=== PATIENT | female | born 1960 | race Caucasian/White ===

== ENCOUNTER 2018-04-22 13:42 | Inpatient (IN) | payer MEDICARE ==
[~2018-04-22] VITALS: Ht 157.5 cm; Wt 95.8 kg
--- OUTSIDE RECORDS SUMMARY | 2018-04-22 13:44 | XMS REPORT ---
Author Author [facility] Address Unknown Phone Unavailable Care Team Providers Care Lusterer Name Role Phone FEDERICO CHAMBERLAINTomasDORTOHY BOWEN Unavailable Unavailable Problems This patient has no known problems. Allergies, Adverse Reactions, Alerts This patient has no known allergies or adverse reactions. Medications This patient has no known medications. Results Test Description Test Time Test Comments Text Results Atomic Results Result Comments TISSUE EXAM 2018-04-18 17:56:00 Surgical Pathology Report Case: [id number] Authorizing Provider: Manoj Muñoz MD Collected: 04/16/2018 1506 Ord ering Location: [facility] PERIOPERATIVE Received: 04/17/2018 0852 SERVICES Pathologist: Kenneth Shaw MD Specimen: Gallbladder GALLBLADDER, CHOLECYSTECTOMY: - ACUTE AND CHRONIC CHOLECYSTITIS WITH CHOLELITHIASIS Signing Pathologist Direct Phone Line: [phone] signed by Kenneth Shaw MD on 04/18/2018 at 5:56 [id number] Gallbladder The specimen is received in formalin-filled container and labeled with the patient's information and labeled "gallbladder" consists of an intact gallbladder measuring 8 x 4.9 cm with the gallbladder wall thickness up to 0.4 cm. Gallbladder lumen is filled with red thick bile and multiple black smooth stones measuring up to 0.4 cm. The mucosa is neil-red and velvety with no distinct a bnormalities. Section code: A1, margin en face; A2, gallbladder wall. CG/pl Performed BASIC METABOLIC PANEL 2018-04-17 05:36:00 SODIUM (BEAKER) (test zxya=605) 132 meq/L 136-145 POTASSIUM (BEAKER) (test xyug=423) 4.6 meq/L 3.5-5.1 CHLORIDE (BEAKER) (test lgfs=727) 94 meq/L 98-107 CO2 (BEAKER) (test tsbw=275) 30 meq/L 22-29 BLOOD UREA NITROGEN (BEAKER) (test cebs=311) 15 mg/dL 7-21 CREATININE (BEAKER) (test eqqa=518) 0.94 mg/dL 0.57-1.25 GLUCOSE RANDOM (BEAKER) (test tads=475) 69 mg/dL 70-105 CALCIUM (BEAKER) (test zsgw=087) 9.1 mg/dL 8.4-10.2 EGFR (BEAKER) (test tpub=1722) 61 mL/min/1.73 sq m ESTIMATED GFR IS NOT ACCURATE CREATININE CLEARANCE IN PREDICTING GLOMERULAR FILTRATION RATE. ESTIMATED GFR IS NOT APPLICABLE FOR DIALYSIS PATIENTS. HEMOGLOBIN AND [id number] 05:28:00* Test Item Value Reference Range Comments HEMOGLOBIN (BEAKER) (test eyts=233) 12.5 GM/DL 11.2-15.7 HEMATOCRIT (BEAKER) (test qtyk=079) 37.7 % 34.1-44.9 BASIC METABOLIC [id number] 06:30:00* Test Item Value Reference Range Comments SODIUM (BEAKER) (test oarz=255) 131 meq/L 136-145 POTASSIUM (BEAKER) (test gwuo=196) 3.7 meq/L 3.5-5.1 CHLORIDE (BEAKER) (test tngc=381) 93 meq/L 98-107 CO2 (BEAKER) (test iuop=610) 30 meq/L 22-29 BLOOD UREA NITROGEN (BEAKER) (test xgne=607) 12 mg/dL 7-21 CREATININE (BEAKER) (test bjgg=615) 0.78 mg/dL 0.57-1.25 GLUCOSE RANDOM (BEAKER) (test lhbt=515) 62 mg/dL 70-105 CALCIUM (BEAKER) (test libl=403) 9.3 mg/dL 8.4-10.2 EGFR (BEAKER) (test vzdu=7937) 76 mL/min/1.73 sq m ESTIMATED GFR IS NOT ACCURATE CREATININE CLEARANCE IN PREDICTING GLOMERULAR FILTRATION RATE. ESTIMATED GFR IS NOT APPLICABLE FOR DIALYSIS PATIENTS. RAD, ABDOMEN/KUB, 1 VIEW [id number] 20:41:00Reason for exam:->Abdominal pain FINAL REPORT Abdomen one view supine 04/15/2018 8:41 PM CL INICAL INDICATION: Abdominal pain COMPARISON: None available IMPRESSION: There i s no radiographic evidence of bowel obstruction. There is mild ileus. No abnorma l calcifications are seen in the region of the gallbladder or kidneys. There are no acute-appearing skeletal abnormalities.. Signed: Dieudonne Sood rified Date/Time: 04/15/2018 20:41:57 Reading Location: [facility] Radiology Reading Room C METABOLIC [id number] 03:30:00* Test Item Value Reference Range Comments SODIUM (BEAKER) (test bnpw=750) 133 meq/L 136-145 POTASSIUM (BEAKER) (test sirt=562) 3.3 meq/L 3.5-5.1 Specimen slightly hemolyzed CHLORIDE (BEAKER) (test jicq=995) 94 meq/L 98-107 CO2 (BEAKER) (test vxre=442) 29 meq/L 22-29 BLOOD UREA NITROGEN (BEAKER) (test ujwd=604) 10 mg/dL 7-21 CREATININE (BEAKER) (test epnm=960) 0.81 mg/dL 0.57-1.25 Specimen slightly hemolyzed GLUCOSE RANDOM (BEAKER) (test gnan=837) 81 mg/dL 70-105 CALCIUM (BEAKER) (test rpti=726) 9.4 mg/dL 8.4-10.2 EGFR (BEAKER) (test xzfh=3240) 73 mL/min/1.73 sq m ESTIMATED GFR IS NOT ACCURATE CREATININE CLEARANCE IN PREDICTING GLOMERULAR FILTRATION RATE. ESTIMATED GFR IS NOT APPLICABLE FOR DIALYSIS PATIENTS. CBC (HEMOGRAM ONLY)2018-04-15 03:19:00* Test Item Value Reference Range Comments WHITE BLOOD CELL COUNT (BEAKER) (test jmjn=349) 9.3 K/ L 3.5-10.5 RED BLOOD CELL COUNT (BEAKER) (test bced=525) 4.10 M/ L 3.93-5.22 HEMOGLOBIN (BEAKER) (test whyj=781) 12.6 GM/DL 11.2-15.7 HEMATOCRIT (BEAKER) (test uixv=621) 36.9 % 34.1-44.9 MEAN CORPUSCULAR VOLUME (BEAKER) (test ncgb=600) 90.0 fL 79.4-94.8 MEAN CORPUSCULAR HEMOGLOBIN (BEAKER) (test ppxo=748) 30.7 pg 25.6-32.2 MEAN CORPUSCULAR HEMOGLOBIN CONC (BEAKER) (test gbgk=388) 34.1 GM/DL 32.2-35.5 RED CELL DISTRIBUTION WIDTH (BEAKER) (test dnmm=775) 12.9 % 11.7-14.4 PLATELET COUNT (BEAKER) (test eymc=056) 230 K/CU MM 150-450 MEAN PLATELET VOLUME (BEAKER) (test uhlr=415) 10.1 fL 9.4-12.3 NUCLEATED RED BLOOD CELLS (BEAKER) (test duya=918) 0 /100 WBC 0-0 BASIC METABOLIC [id number] 07:48:00* Test Item Value Reference Range Comments SODIUM (BEAKER) (test gwxh=131) 130 meq/L 136-145 POTASSIUM (BEAKER) (test bmlz=708) 4.1 meq/L 3.5-5.1 CHLORIDE (BEAKER) (test ybev=563) 95 meq/L 98-107 CO2 (BEAKER) (test ktqb=079) 30 meq/L 22-29 BLOOD UREA NITROGEN (BEAKER) (test epth=772) 14 mg/dL 7-21 CREATININE (BEAKER) (test fzhc=150) 0.81 mg/dL 0.57-1.25 GLUCOSE RANDOM (BEAKER) (test ytuo=110) 79 mg/dL 70-105 CALCIUM (BEAKER) (test nlrd=969) 9.2 mg/dL 8.4-10.2 EGFR (BEAKER) (test bcwh=6347) 73 mL/min/1.73 sq m ESTIMATED GFR IS NOT ACCURATE CREATININE CLEARANCE IN PREDICTING GLOMERULAR FILTRATION RATE. ESTIMATED GFR IS NOT APPLICABLE FOR DIALYSIS PATIENTS. CBC (HEMOGRAM ONLY)2018-04-14 07:04:00* Test Item Value Reference Range Comments WHITE BLOOD CELL COUNT (BEAKER) (test ezmv=503) 9.5 K/ L 3.5-10.5 RED BLOOD CELL COUNT (BEAKER) (test lnyf=968) 3.98 M/ L 3.93-5.22 HEMOGLOBIN (BEAKER) (test ybma=899) 12.3 GM/DL 11.2-15.7 HEMATOCRIT (BEAKER) (test axua=604) 36.3 % 34.1-44.9 MEAN CORPUSCULAR VOLUME (BEAKER) (test brme=224) 91.2 fL 79.4-94.8 MEAN CORPUSCULAR HEMOGLOBIN (BEAKER) (test ernt=402) 30.9 pg 25.6-32.2 MEAN CORPUSCULAR HEMOGLOBIN CONC (BEAKER) (test vrvt=515) 33.9 GM/DL 32.2-35.5 RED CELL DISTRIBUTION WIDTH (BEAKER) (test xnyw=609) 13.1 % 11.7-14.4 PLATELET COUNT (BEAKER) (test qprj=805) 222 K/CU MM 150-450 MEAN PLATELET VOLUME (BEAKER) (test wsey=164) 10.6 fL 9.4-12.3 NUCLEATED RED BLOOD CELLS (BEAKER) (test ckqf=371) 0 /100 WBC 0-0 FL, [id number] 09:45:00Reason for exam:->CBD stoneFINAL REPORT ERCP 5 views 04/13/2018 9:44 AM CLINICAL HISTORY: Instrument localization COMPARISON: None available IMPRESSION: Please correlate imaging report findings with the procedure note prepared by Dr. Abraham, as an intra- procedure imaging consultation was not requested. Reported fluoroscopy time: 72.8 seconds. Signed: Dieudonne Sood Verified Date/Time: 04/13/2018 09:45:14 Reading Location: [address] Neuro Reading Room REHENSIVE METABOLIC [id number] 07:32:00* Test Item Value Reference Range Comments TOTAL PROTEIN (BEAKER) (test sayl=568) 6.5 gm/dL 6.0-8.3 ALBUMIN (BEAKER) (test flnx=5115) 2.7 g/dL 3.5-5.0 ALKALINE PHOSPHATASE (BEAKER) (test jekh=528) 101 U/L 40-150 BILIRUBIN TOTAL (BEAKER) (test ilmt=356) 2.0 mg/dL 0.2-1.2 SODIUM (BEAKER) (test jezz=095) 131 meq/L 136-145 POTASSIUM (BEAKER) (test sgoj=297) 3.7 meq/L 3.5-5.1 CHLORIDE (BEAKER) (test drgl=080) 98 meq/L 98-107 CO2 (BEAKER) (test enrc=401) 25 meq/L 22-29 BLOOD UREA NITROGEN (BEAKER) (test aaiq=422) 19 mg/dL 7-21 CREATININE (BEAKER) (test xiqh=930) 0.84 mg/dL 0.57-1.25 GLUCOSE RANDOM (BEAKER) (test twef=876) 65 mg/dL 70-105 CALCIUM (BEAKER) (test ykbr=029) 9.1 mg/dL 8.4-10.2 AST (SGOT) (BEAKER) (test uhhu=873) 43 U/L 5-34 ALT (SGPT) (BEAKER) (test hvkp=584) 23 U/L 6-55 EGFR (BEAKER) (test qeej=9066) 70 mL/min/1.73 sq m ESTIMATED GFR IS NOT ACCURATE CREATININE CLEARANCE IN PREDICTING GLOMERULAR FILTRATION RATE. ESTIMATED GFR IS NOT APPLICABLE FOR DIALYSIS PATIENTS. CBC (HEMOGRAM ONLY)2018-04-13 06:01:00* Test Item Value Reference Range Comments WHITE BLOOD CELL COUNT (BEAKER) (test zofh=119) 11.2 K/ L 3.5-10.5 RED BLOOD CELL COUNT (BEAKER) (test mlpm=367) 3.89 M/ L 3.93-5.22 HEMOGLOBIN (BEAKER) (test wbgz=210) 12.1 GM/DL 11.2-15.7 HEMATOCRIT (BEAKER) (test xfoh=025) 36.1 % 34.1-44.9 MEAN CORPUSCULAR VOLUME (BEAKER) (test oaau=258) 92.8 fL 79.4-94.8 MEAN CORPUSCULAR HEMOGLOBIN (BEAKER) (test ahzm=004) 31.1 pg 25.6-32.2 MEAN CORPUSCULAR HEMOGLOBIN CONC (BEAKER) (test qnzn=542) 33.5 GM/DL 32.2-35.5 RED CELL DISTRIBUTION WIDTH (BEAKER) (test putm=677) 13.1 % 11.7-14.4 PLATELET COUNT (BEAKER) (test tzwp=100) 207 K/CU MM 150-450 MEAN PLATELET VOLUME (BEAKER) (test ycwj=301) 11.3 fL 9.4-12.3 NUCLEATED RED BLOOD CELLS (BEAKER) (test gxos=349) 0 /100 WBC 0-0 U/S, ABDOMINAL, [id number] 15:41:00Reason for exam:->ABDOMINAL PAIN Reason for exam:->EMESISFINAL REPORT INDICATION: Ascites. Limited abdominal ultrasound. IMPRESSION: Ultrasound examination of the abdomen was performed in preparation for paracentesis. However, only trace ascites is seen in the abdomen and pelvis, not amenable for safe drainage. Paracentesis is therefore not performed. Signed: Little Griffin Verified Date/Time: 04/12/2018 15:41:37 Reading Location: [address] Ortho Consult Reading Room , CHEST, 1 VIEW, NON [id number] 01:19:00Reason for exam:->sobReason for exam:- >EMESISShould this be performed at the bedside?->YesFINAL REPORT INDICATION: sobEMESIS COMPARISON: None TECHNIQUE: Single frontal view of the chest. FINDINGS: Lungs and pleura: Poor inspiratory effort versus low lung volumes. No focal airspace consolidation. No effusion.Heart and mediastinum: Normal heart size. Unremarkable mediastinal contours.Osseous structures: No acute abnormality.Other: None. IMPRESSION: No acute intrat horacic abnormality. Signed: Bridgette Hardy Verified Date/Time: 04/12 01:19:41 Reading Location: [place] [id number] Neuro Reading Room B-TYPE NATRIURETIC FACTOR (BNP)2018-04-12 01:15:00* Test Item Value Reference Range Comments B-TYPE NATRIURETIC PEPTIDE (BEAKER) (test epwd=728) 101 pg/mL 0-100 POCT-LACTIC ACID, [id number] 00:44:00* Test Item Value Reference Range Comments POC-LACTIC ACID, VENOUS (BEAKER) (test fojb=8798) 1.4 mmol/L 0.9-1.7 TESTED AT [facility] [address] [facility] [address] PROTHROMBIN [id number] 23:30:00* Test Item Value Reference Range Comments PROTIME (BEAKER) (test vqec=137) 19.1 seconds 11.7-14.7 INR (EMILY) (test rfdl=646) 1.6 <=5.9 RECOMMENDED COUMADIN/WARFARIN INR THERAPY RANGESSTANDARD DOSE: 2.0 - 3.0 Inclu mesha: PROPHYLAXIS for venous thrombosis, systemic embolization; TREATMENT for kristal ous thrombosis and/or pulmonary embolus.HIGH RISK: Target INR is 2.5-3.5 for pat ients with mechanical heart valves.U/S, ABDOMINAL, [id number] 21:37:00 Abdomen limited area? Add comment if clarification is needed.->Gall BladderReason for exam:->RUQ and epigastric painFINAL REPORT Right upper quadrant abdominal ultrasound, 04/11/2018. History: Right upper quadrant and epigastric pain. Comparison: None. Discussion: Transverse and longitudinal images of the right upper quadrant of the abdomen were obtained demonstrating a liver of coarsened echotexture with a nodular contour. There is no evidence of a focal hepatic mass. The portal vein is patent with hepatopetal flow and is within normal limits measuring 7 mm in diameter. The biliary tree is within normal limits with the common bile duct measuring 6 mm in diameter. The gallbladder is distended measuring 6.5 cm transverse diameter. There is gallbladder wall thickening up to 6 mm. Echogenic material within the gallbladder fossa is likely sludge. No shadowing stones are visualized. The registered quality checker reports the sonographic Clark's sign is positive The right kidney is normal in size and echogenicity without evidence of hydr onephrosis, stones, or mass and measures 10.6 cm in length. The pancreas is secu red by bowel gas. The abdominal aorta is within normal limits. There is ascites. IMPRESSION: 1. Distended gallbladder with echogenic sludge and gallbladder wall thickening concerning for acute cholecystitis. No shadowing gallstones are vis ualized. Cirrhosis is a confounding factor which could account for the gallbladd er wall thickening. If there is high clinical concern for acute acalculous fabby cystitis HIDA scan may be performed.2. Cirrhosis with signs of portal hypertensi on including ascites Signed: Shyam Mccabe MDReport Verified Date/Time: 04/11 21:37:49 Reading Location: [facility] [id number] Consult Reading Room [facility] signed by: SHYAM MCCABE on 04/11/2018 09:37 PM [id number] 17:21:00* Test Item Value Reference Range Comments AMYLASE (BEAKER) (test bgru=696) 45 U/L 25-125 Specimen slightly ictericHEPATIC FUNCTION [id number] 17:21:00* Test Item Value Reference Range Comments TOTAL PROTEIN (BEAKER) (test vwfr=812) 7.1 gm/dL 6.0-8.3 ALBUMIN (BEAKER) (test tumo=1972) 3.0 g/dL 3.5-5.0 BILIRUBIN TOTAL (BEAKER) (test fkdw=166) 2.6 mg/dL 0.2-1.2 BILIRUBIN DIRECT (BEAKER) (test lips=383) 1.2 mg/dL 0.1-0.5 ALKALINE PHOSPHATASE (BEAKER) (test cpvj=030) 113 U/L 40-150 AST (SGOT) (BEAKER) (test rjhs=923) 46 U/L 5-34 ALT (SGPT) (BEAKER) (test ypee=708) 29 U/L 6-55 Specimen slightly [id number] 17:21:00* Test Item Value Reference Range Comments LIPASE (BEAKER) (test ifoe=808) 10 U/L 8-78 Specimen slightly ictericBASIC METABOLIC [id number] 17:21:00* Test Item Value Reference Range Comments SODIUM (BEAKER) (test poxe=253) 135 meq/L 136-145 POTASSIUM (BEAKER) (test nlsg=919) 3.7 meq/L 3.5-5.1 CHLORIDE (BEAKER) (test hznu=886) 99 meq/L 98-107 CO2 (BEAKER) (test ynic=396) 24 meq/L 22-29 BLOOD UREA NITROGEN (BEAKER) (test jcyl=207) 15 mg/dL 7-21 CREATININE (BEAKER) (test wxxy=078) 1.08 mg/dL 0.57-1.25 GLUCOSE RANDOM (BEAKER) (test sdfi=803) 83 mg/dL 70-105 CALCIUM (BEAKER) (test nmpu=300) 9.6 mg/dL 8.4-10.2 EGFR (BEAKER) (test umjx=1006) mL/min/1.73 sq m INSUFFICIENT CLINICAL DATA TO CALCULATE ESTIMATED GFR. Specimen slightly ictericCBC W/PLT COUNT & AUTO [id number] 17:10:00 * Test Item Value Reference Range Comments WHITE BLOOD CELL COUNT (BEAKER) (test fcoi=924) 17.5 K/ L 3.5-10.5 RED BLOOD CELL COUNT (BEAKER) (test tybm=333) 4.29 M/ L 3.93-5.22 HEMOGLOBIN (BEAKER) (test jeps=395) 13.2 GM/DL 11.2-15.7 HEMATOCRIT (BEAKER) (test sgvv=695) 39.8 % 34.1-44.9 MEAN CORPUSCULAR VOLUME (BEAKER) (test pumo=217) 92.8 fL 79.4-94.8 MEAN CORPUSCULAR HEMOGLOBIN (BEAKER) (test woav=077) 30.8 pg 25.6-32.2 MEAN CORPUSCULAR HEMOGLOBIN CONC (BEAKER) (test xgti=289) 33.2 GM/DL 32.2-35.5 RED CELL DISTRIBUTION WIDTH (BEAKER) (test adur=870) 12.9 % 11.7-14.4 PLATELET COUNT (BEAKER) (test lwhv=901) 210 K/CU MM 150-450 MEAN PLATELET VOLUME (BEAKER) (test ahdp=054) 11.1 fL 9.4-12.3 NUCLEATED RED BLOOD CELLS (BEAKER) (test rlrg=905) 0 /100 WBC 0-0 NEUTROPHILS RELATIVE PERCENT (BEAKER) (test irrr=234) 77 % LYMPHOCYTES RELATIVE PERCENT (BEAKER) (test cztn=707) 14 % MONOCYTES RELATIVE PERCENT (BEAKER) (test zjzm=823) 8 % EOSINOPHILS RELATIVE PERCENT (BEAKER) (test vani=386) 0 % BASOPHILS RELATIVE PERCENT (BEAKER) (test qygm=757) 0 % NEUTROPHILS ABSOLUTE COUNT (BEAKER) (test bphj=233) 13.50 K/ L 1.56-6.13 LYMPHOCYTES ABSOLUTE COUNT (BEAKER) (test rory=218) 2.49 K/ L 1.18-3.74 MONOCYTES ABSOLUTE COUNT (BEAKER) (test kojw=416) 1.42 K/ L 0.24-0.36 EOSINOPHILS ABSOLUTE COUNT (BEAKER) (test ukfs=542) 0.00 K/ L 0.04-0.36 BASOPHILS ABSOLUTE COUNT (BEAKER) (test ptvh=079) 0.03 K/ L 0.01-0.08 IMMATURE GRANULOCYTES-RELATIVE PERCENT (OffiSyncAKER) (test gpai=1966) 1 % 0-1
--- OUTSIDE RECORDS SUMMARY | 2018-04-22 13:44 | XMS REPORT | Clinical Summary ---
Author Author [facility] Address Unknown Phone Unavailable Care Team Providers Care Boiler Fireman Name Role Phone Flor Rey MD PCP Allergies No Known Allergies Medications End Date Status Medication Sig Dispensed Refills Start Date Active atorvastatin (LIPITOR) 40 Take 40 mg by 0 MG tablet mouth daily. Active clopidogrel (PLAVIX) 75 Take 75 mg by 0 mg tablet mouth daily. Active folic acid (FOLVITE) 1 MG Take 1 mg by 0 tablet mouth daily. Active gabapentin (NEURONTIN) Take 300 mg 0 300 MG capsule by mouth 2 (two) times daily. Active metoprolol (LOPRESSOR) Take 100 mg 0 100 MG tablet by mouth 2 (two) times daily. Active mometasone 110 mcg (30 Inhale 220 0 doses) AePB mcg by mouth via inhaler daily. 04/17/2019 Active spironolactone Take 1 tablet 90 tablet 3 (ALDACTONE) 50 MG tablet (50 mg total) 9 by mouth daily. 04/17/2019 Active thiamine 100 MG tablet Take 1 tablet 0 (100 mg 9 total) by mouth daily. 04/27/2018 Active traMADol (ULTRAM) 50 mg Take 1 tablet 30 tablet 0 tablet (50 mg total) 9 by mouth every 6 (six) hours as needed for Pain for up to 10 days. Max Daily Amount: 200 mg 04/17/2018 Discontinued cimetidine (TAGAMET) 200 Take 200 mg 0 MG tablet by mouth 4 (four) times daily. 04/17/2018 Discontinued DULoxetine (CYMBALTA) 20 Take 20 mg by 0 MG capsule mouth daily. 04/17/2018 Discontinued enalapril (VASOTEC) 10 MG Take 10 mg by 0 tablet mouth daily. 04/17/2018 Discontinued HYDROcodone-acetaminophen Take 1 tablet 30 tablet 0 (NORCO 5-325) 5-325 mg by mouth 9 per tablet every 6 (six) hours as needed for Pain for up to 10 days. Max Daily Amount: 4 tablets Active Problems Problem Noted Date Acute diastolic heart failure 04/16/2018 Hyponatremia 04/13/2018 Alcoholic cirrhosis of liver with ascites 04/12/2018 Portal hypertension 04/12/2018 SOB (shortness of breath) 04/12/2018 Acute cholecystitis 04/11/2018 Resolved Problems Problem Noted Date Resolved Date SIRS (systemic inflammatory response syndrome) 04/12/2018 04/12/2018 Encounters Care Team Description Date Type Specialty Cindy Mathews MD 04/16/2018 Anesthesia Event Manoj Muñoz MD LAPAROSCOPY,CHOLECYSTECTOMY 04/16/2018 Surgery Connie Edmonds, ALAN 04/13/2018 Anesthesia Gastroenterology Event Aditya Abraham MD ERCP 04/13/2018 Surgery Gastroenterology Arun Rae MD Dang, Thai Duc, MD Acute cholecystitis (Primary Dx); Cirrhosis of liver without ascites, unspecified hepatic cirrhosis type (HCC); RUQ abdominal pain; Non-intractable vomiting with nausea, unspecified vomiting type; Sepsis, due to unspecified organism (HCC) 04/11/2018 Hospital General Internal Medicine - Encounter 04/17/2018 04/11/2018 Orders Only General Internal Medicine 04/11/2018 Travel after 04/21/2017 Social History Date Tobacco Use Types Packs/Day Years Used Former Smoker Smokeless Tobacco: Former User Alcohol Use Drinks/Week oz/Week Comments No Alcohol Habits Answer Date Recorded How often do you have a drink containing alcohol? Never 04/11/2018 How many drinks containing alcohol do you have on Not asked a typical day when you are drinking? How often do you have six or more drinks on one Not asked occasion? Sex Assigned at Date Recorded Not on file Industry Job Start Date Occupation Not on file Not on file Not on file Travel End Travel History Travel Start No recent travel history available. Last Filed Vital Signs Time Taken Vital Sign Reading 04/17/2018 8:00 AM AIR POLLUTION SPECIALIST Blood Pressure 104/57 04/17/2018 8:00 AM AIR POLLUTION SPECIALIST Pulse 75 04/17/2018 8:00 AM AIR POLLUTION SPECIALIST Temperature 36.1 C (97 F) 04/17/2018 8:00 AM AIR POLLUTION SPECIALIST Respiratory Rate 18 04/17/2018 8:00 AM AIR POLLUTION SPECIALIST Oxygen Saturation 93% - Inhaled Oxygen - Concentration 04/11/2018 3:58 PM AIR POLLUTION SPECIALIST Weight 86.6 kg (191 lb) 04/11/2018 3:58 PM AIR POLLUTION SPECIALIST Height 157.5 cm (5' 2") 04/11/2018 3:58 PM AIR POLLUTION SPECIALIST Body Mass Index 34.93 Plan of Treatment Not on file Procedures Comments Procedure Name Priority Date/Time Associated Diagnosis TRANSFUSION SERVICE 04/17/2018 REPORT - SCAN 6:00 PM AIR POLLUTION SPECIALIST HEMOGLOBIN AND HEMATOCRIT Routine 04/17/2018 3:22 AM AIR POLLUTION SPECIALIST BASIC METABOLIC PANEL (7) Routine 04/17/2018 3:22 AM AIR POLLUTION SPECIALIST TISSUE EXAM AP Routine 04/16/2018 3:06 PM AIR POLLUTION SPECIALIST TYPE AND SCREEN, Routine 04/16/2018 AUTOMATED 2:55 PM AIR POLLUTION SPECIALIST LAPAROSCOPY,CHOLECYSTECTO 04/16/2018 Cholecystitis MY 1:50 PM AIR POLLUTION SPECIALIST Special Needs REQ TF BASIC METABOLIC PANEL (7) Routine 04/16/2018 4:55 AM AIR POLLUTION SPECIALIST XR ABDOMEN 1 VIEW Routine 04/15/2018 6:00 PM AIR POLLUTION SPECIALIST ECHOCARDIOGRAM REPORT - 04/15/2018 SCAN 4:20 PM AIR POLLUTION SPECIALIST 2D ECHO W/ DOPPLER Routine 04/15/2018 (CW/PW/COLOR) 1:24 PM AIR POLLUTION SPECIALIST CBC (HEMOGRAM ONLY) Routine 04/15/2018 3:07 AM AIR POLLUTION SPECIALIST BASIC METABOLIC PANEL (7) Routine 04/15/2018 3:07 AM AIR POLLUTION SPECIALIST BASIC METABOLIC PANEL (7) Routine 04/14/2018 6:01 AM AIR POLLUTION SPECIALIST CBC (HEMOGRAM ONLY) Routine 04/14/2018 6:01 AM AIR POLLUTION SPECIALIST FL ERCP Routine 04/13/2018 8:35 AM AIR POLLUTION SPECIALIST REPORT OF PROCEDURE - 04/13/2018 ENDOSCOPY URL 8:34 AM AIR POLLUTION SPECIALIST ERCP,BALLOON SWEEPING 04/13/2018 Common bile duct (CBD) 8:00 AM AIR POLLUTION SPECIALIST obstruction PROCEDURE W/ C-ARM 04/13/2018 Common bile duct (CBD) 8:00 AM AIR POLLUTION SPECIALIST obstruction ERCP 04/13/2018 Common bile duct (CBD) 8:00 AM AIR POLLUTION SPECIALIST obstruction CBC (HEMOGRAM ONLY) Routine 04/13/2018 4:00 AM AIR POLLUTION SPECIALIST COMPREHENSIVE METABOLIC Routine 04/13/2018 PANEL 4:00 AM AIR POLLUTION SPECIALIST US ABDOMEN LIMITED STAT 04/12/2018 3:40 PM AIR POLLUTION SPECIALIST XR CHEST 1 VIEW STAT 04/12/2018 PORTABLE/BEDSIDE 12:53 AM AIR POLLUTION SPECIALIST POCT-LACTIC ACID, VENOUS Routine 04/12/2018 12:40 AM AIR POLLUTION SPECIALIST B-TYPE NATRIURETIC FACTOR Routine 04/12/2018 (BNP) 12:37 AM AIR POLLUTION SPECIALIST PROTHROMBIN TIME/INR STAT 04/11/2018 10:55 PM AIR POLLUTION SPECIALIST US ABDOMEN LIMITED STAT 04/11/2018 8:37 PM AIR POLLUTION SPECIALIST ED ECG INTERPRETATION Routine 04/11/2018 6:08 PM AIR POLLUTION SPECIALIST CBC W/PLT COUNT & AUTO STAT 04/11/2018 DIFFERENTIAL 4:47 PM AIR POLLUTION SPECIALIST CBC W/PLT COUNT & AUTO STAT 04/11/2018 DIFFERENTIAL 4:47 PM AIR POLLUTION SPECIALIST LIPASE STAT 04/11/2018 4:47 PM AIR POLLUTION SPECIALIST AMYLASE STAT 04/11/2018 4:47 PM AIR POLLUTION SPECIALIST HEPATIC FUNCTION PANEL STAT 04/11/2018 4:47 PM AIR POLLUTION SPECIALIST BASIC METABOLIC PANEL (7) STAT 04/11/2018 4:47 PM AIR POLLUTION SPECIALIST ECG 12-LEAD Routine 04/11/2018 4:24 PM AIR POLLUTION SPECIALIST Procedure Note - Interface, External Ris In - 04/11/2018 6:21 PM AIR POLLUTION SPECIALIST Ventricula r Rate 80 BPM Atrial Rate 80 BPM P-R Interval 160 ms QRS Duration 80 ms Q-T Interval 438 ms QTC Calculatio n(Bazett) 505 ms P [place] 68 degrees R [place] 51 degrees T [place] 70 degrees Normal sinus rhythm Nonspecifi c T wave abnormalit y Prolonged QT Abnormal ECG No previous ECGs available ECG 12-LEAD STAT 04/11/2018 4:24 PM AIR POLLUTION SPECIALIST after 04/21/2017 Results * TRANSFUSION SERVICE REPORT - SCAN (04/17/2018 6:00 PM AIR POLLUTION SPECIALIST) Narrative Performed At * Hemoglobin and hematocrit (04/17/2018 3:22 AM AIR POLLUTION SPECIALIST) Hemoglobin 12.5 11.2 - 15.7 GM/DL [facility] Hematocrit 37.7 34.1 - 44.9 % [facility] Specimen Blood - Arm, Left Performing Organization Address [facility] Phone Number [facility] [address] [place] [address] [phone] [place] [address] * Basic Metabolic Panel (04/17/2018 3:22 AM AIR POLLUTION SPECIALIST) Only the most recent of 5 results within the time period is included. Sodium 132 (L) 136 - 145 meq/L [facility] Potassium 4.6 3.5 - 5.1 meq/L [facility] Chloride 94 (L) 98 - 107 meq/L [facility] CO2 30 (H) 22 - 29 meq/L [facility] BUN 15 7 - 21 mg/dL [facility] Creatinine 0.94 0.57 - 1.25 mg/dL [facility] Glucose 69 (L) 70 - 105 mg/dL [facility] Calcium 9.1 8.4 - 10.2 mg/dL [facility] EGFR 61Comment: ESTIMATED GFR IS mL/min/1.73 sq m [facility] NOT ACCURATE CREATININE [facility] CLEARANCE IN PREDICTING GLOMERULAR FILTRATION RATE. ESTIMATED GFR IS NOT APPLICABLE FOR DIALYSIS PATIENTS. Specimen Blood - Arm, Left Performing Organization Address City/[facility] Phone Number [place] [phone] [place], [place] [id number] [facility] * Tissue Exam (04/16/2018 3:06 PM AIR POLLUTION SPECIALIST) Case Report Surgical Pathology [facility] Report [facility] Case: [id number] Authorizing Provider:Manoj Muñoz MD Collected: 04/16/2018 1506 Ordering Location: [facility] PERIOPERATIVE Received: 04/17/2018 0852 SERVICES Pathologist: Kenneth Shaw MD Specimen:Gallbladder DIAGNOSIS GALLBLADDER, CHOLECYSTECTOMY: [facility] - ACUTE AND CHRONIC [facility] CHOLECYSTITIS WITH CHOLELITHIASIS Signing Pathologist Direct Phone Line: [phone] CPT Code(s) 15789 [facility] CLINICAL HISTORY Cholecystitis [facility] SPECIMEN SOURCE Gallbladder [facility] GROSS DESCRIPTION The specimen is received in [facility] formalin-filled container and [facility] labeled with the patient's information and labeled "gallbladder" consists of an intact gallbladder measuring 8 x 4.9 cm with the gallbladder wall thickness up to 0.4 cm. Gallbladder lumen is filled with red thick bile and multiple black smooth stones measuring up to 0.4 cm. The mucosa is neil-red and velvety with no distinct abnormalities. Section code: A1, margin en face; A2, gallbladder wall. CG/pl MICROSCOPIC DESCRIPTION Performed [facility] Specimen Tissue - Gallbladder Performing Organization Address City/[facility] Cent[facility] Phone Number [address] [address] [phone] [place] [address] * Type and screen, automated (04/16/2018 2:55 PM AIR POLLUTION SPECIALIST) ABO/RH AUTOMATED (BEAKER) O POSITIVE [facility] Ab Scrn NEGATIVE [facility] Specimen Blood Performing Organization Address City/[facility]/Zipcode Phone Number [address] [address] [facility] * XR abdomen / KUB 1 view (04/15/2018 6:00 PM AIR POLLUTION SPECIALIST) Narrative Performed At FINAL REPORT [facility] Abdomen one view supine 04/15/2018 8:41 PM CLINICAL INDICATION: Abdominal pain COMPARISON: None available IMPRESSION: There is no radiographic evidence of bowel obstruction. There is mild ileus. No abnormal calcifications are seen in the region of the gallbladder or kidneys. There are no acute-appearing skeletal abnormalities.. Signed: Dieudonne Olivarez MD Report Verified Date/Time:04/15/2018 20:41:57 Reading Location: [facility] Radiology Reading Room Procedure Note Interface, External Ris In - 04/15/2018 8:44 PM AIR POLLUTION SPECIALIST FINAL REPORT Abdomen one view supine 04/15/2018 8:41 PM CLINICAL INDICATION: Abdominal pain COMPARISON: None available IMPRESSION: There is no radiographic evidence of bowel obstruction. There is mild ileus. No abnormal calcifications are seen in the region of the gallbladder or kidneys. There are no acute-appearing skeletal abnormalities.. Signed: Dieudonne Olivarez MD Report Verified Date/Time: 04/15/2018 20:41:57 Reading Location: [facility] Radiology Reading Room Performing Organization Address City/State/Zipcode Phone Number [facility] * ECHOCARDIOGRAM REPORT - SCAN (04/15/2018 4:20 PM AIR POLLUTION SPECIALIST) Narrative Performed At * 2D Echo W/Doppler(CW/PW/Color) (04/15/2018 1:24 PM AIR POLLUTION SPECIALIST) Ejection Fraction [facility] ECHO HEARTLAB [facility] Narrative Performed At Transthoracic Echocardiography Report (TTE) [facility] ECHO HEARTLAB Demographics [facility] Patient NameADRIANA ALLAN Date of Study04/15/2018 ADDI Gender Female Visit [id number] Race Unknown [id number] Number Date of 1960 Referring PhysicianDang Ike Carter Age 57 year(s) 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 Clinical History Liver cirrhosis, Former smoker, Murmur, Hep C, HLD, HTN HGB 12.6 HCT 36.9 % Contrast Medium: Bubble Study. Amount - 20 ml Height: 62 inches Weight: 86.64 kg (191 lbs) BSA: 1.87 m^2 BMI: 34.93 kg/m^2 HR: 77 bpm BP: 126/69 mmHg Summary Normal left ventricular chamber size. Normal wall thickness. Normal overall left ventricular systolic function. No apparent segmental wall motion abnormalities. Estimated LVEF by qualitative assessment is normal (>60%) . Grade 1 diastolic dysfunction (impaired relaxation and low-normal LA pressure). Moderate aortic stenosis. Signature Findings Technical Quality: Good visualization Left Ventricle Normal left ventricular chamber size. Normal wall thickness. Normal overall left ventricular systolic function. No apparent segmental wall motion abnormalities. Estimated LVEF by qualitative assessment is normal (>60%) . Grade 1 diastolic dysfunction (impaired relaxation and low-normal LA pressure). Left AtriumLA size is moderately enlarged . Right VentricleNormal right ventricle structure and function. Right Atrium Normal right atrium. Atrial SeptumIV saline contrast injection was negative for a PFO (patent foramen ovale) at rest and post Valsalva . Aortic Valve Moderate AoV cusp thickening. Moderate AoV cusp calcification. Moderate aortic stenosis. Mitral Valve Mild MV leaflet thickening. Mild mitral annular calcification. Tricuspid ValveA trace of tricuspid regurgitation. Estimated peak systolic PA pressure is 30-35 mmHg . Pulmonic Valve Normal PV structure and function by limited views and Doppler. AortaAortic root size (SInus of Valsalva diameter) is normal . PericardiumNo evidence of pericardial effusion. IVC/SVC/PA/PV/PleuralThe estimated RA pressure by IVC dynamics 0-5mmHg . Chambers/Structures Left Atrium LA Dimension: 3.75 cmLA Area: 24.32 cm^2 LA Volume: 80.33 ml LA Vol. Index: 43 ml/m^2 Left Ventricle LVIDd: 4.5 cm LV Septum Diastolic: 1.08 cm LV PW Diastolic: 0.97 cm LVOT Diameter: 2.05 cm Aorta Ao Root S of Mague.: 3.3 cm Doppler/Quantitative Measurements Aortic Valve Peak Velocity: 3.54 m/sMean Velocity: 2.61 m/s Peak Gradient: 50.17 mmHgMean Gradient: 29.77 mmHg AV Area (continuity): 1.08 cm^2 AV VTI: 81.26 cm AV DVI: 0.33 LVOT Peak Velocity: 1.22 m/s Peak Gradient: 5.95 mmHg Mean Velocity: 0.77 m/s Mean Gradient: 2.85 mmHg LVOT Diameter: 2.05 cmLVOT VTI: 26.56 cm LVOT Area: 3.3 cm^2 LVOT SV:87.62 ml LVOT CO: 6.75 l/min LVOT CI: 3.61 l/min/m^2 Procedure Note Interface, External Ris In - 04/15/2018 3:40 PM AIR POLLUTION SPECIALIST Transthoracic Echocardiography Report (TTE) Demographics Patient Name ADRIANA ALLAN Date of Study 04/15/2018 ADDI Gender Female Visit Number [id number] Race Unknown Room Number 1530 Number Date of 1960 Referring Physician Cece Carter Age 57 year(s) 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 Clinical History Liver cirrhosis, Former smoker, Murmur, Hep C, HLD, HTN HGB 12.6 HCT 36.9 % Contrast Medium: Bubble Study. Amount - 20 ml Height: 62 inches Weight: 86.64 kg (191 lbs) BSA: 1.87 m^2 BMI: 34.93 kg/m^2 HR: 77 bpm BP: 126/69 mmHg Summary Normal left ventricular chamber size. Normal wall thickness. Normal overall left ventricular systolic function. No apparent segmental wall motion abnormalities. Estimated LVEF by qualitative assessment is normal (>60%) . Grade 1 diastolic dysfunction (impaired relaxation and low-normal LA pressure). Moderate aortic stenosis. Signature Findings Technical Quality: Good visualization Left Ventricle Normal left ventricular chamber size. Normal wall thickness. Normal overall left ventricular systolic function. No apparent segmental wall motion abnormalities. Estimated LVEF by qualitative assessment is normal (>60%) . Grade 1 diastolic dysfunction (impaired relaxation and low-normal LA pressure). Left Atrium LA size is moderately enlarged . Right Ventricle Normal right ventricle structure and function. Right Atrium Normal right atrium. Atrial Septum IV saline contrast injection was negative for a PFO (patent foramen ovale) at rest and post Valsalva . Aortic Valve Moderate AoV cusp thickening. Moderate AoV cusp calcification. Moderate aortic stenosis. Mitral Valve Mild MV leaflet thickening. Mild mitral annular calcification. Tricuspid Valve A trace of tricuspid regurgitation. Estimated peak systolic PA pressure is 30-35 mmHg . Pulmonic Valve Normal PV structure and function by limited views and Doppler. Aorta Aortic root size (SInus of Valsalva diameter) is normal . Pericardium No evidence of pericardial effusion. IVC/SVC/PA/PV/Pleural The estimated RA pressure by IVC dynamics 0-5mmHg . Chambers/Structures Left Atrium LA Dimension: 3.75 cm LA Area: 24.32 cm^2 LA Volume: 80.33 ml LA Vol. Index: 43 ml/m^2 Left Ventricle LVIDd: 4.5 cm LV Septum Diastolic: 1.08 cm LV PW Diastolic: 0.97 cm LVOT Diameter: 2.05 cm Aorta Ao Root S of Mague.: 3.3 cm Doppler/Quantitative Measurements Aortic Valve Peak Velocity: 3.54 m/s Mean Velocity: 2.61 m/s Peak Gradient: 50.17 mmHg Mean Gradient: 29.77 mmHg AV Area (continuity): 1.08 cm^2 AV VTI: 81.26 cm AV DVI: 0.33 LVOT Peak Velocity: 1.22 m/s Peak Gradient: 5.95 mmHg Mean Velocity: 0.77 m/s Mean Gradient: 2.85 mmHg LVOT Diameter: 2.05 cm LVOT VTI: 26.56 cm LVOT Area: 3.3 cm^2 LVOT SV:87.62 ml LVOT CO: 6.75 l/min LVOT CI: 3.61 l/min/m^2 Performing Organization Address City/State/Zipcode Phone Number [facility] * CBC (Hemogram only) (04/15/2018 3:07 AM AIR POLLUTION SPECIALIST) Only the most recent of 3 results within the time period is included. WBC 9.3 3.5 - 10.5 K/L [facility] RBC 4.10 3.93 - 5.22 M/L [facility] Hemoglobin 12.6 11.2 - 15.7 GM/DL [facility] Hematocrit 36.9 34.1 - 44.9 % [facility] MCV 90.0 79.4 - 94.8 fL [facility] MCH 30.7 25.6 - 32.2 pg [facility] MCHC 34.1 32.2 - 35.5 GM/DL [facility] RDW 12.9 11.7 - 14.4 % [facility] Platelets 230 150 - 450 K/CU MM [facility] MPV 10.1 9.4 - 12.3 fL [facility] nRBC 0 0 - 0 /100 WBC [facility] Specimen Blood - Arm, Left Performing Organization Address City/[facility]/Zipcode Phone Number [facility] [address] [place] [address] MEDICAL CENTER * FL ERCP (04/13/2018 8:35 AM AIR POLLUTION SPECIALIST) Narrative Performed At FINAL REPORT GE RIS ERCP 5 views 04/13/2018 9:44 AM CLINICAL HISTORY: Instrument localization COMPARISON: None available IMPRESSION: Please correlate imaging report findings with the procedure note prepared by Dr. Abraham, as an intra-procedure imaging consultation was not requested. Reported fluoroscopy time: 72.8 seconds. Signed: Dieudonne Olivarez MD Report Verified Date/Time:04/13/2018 09:45:14 Reading Location: [address] Neuro Reading Room Procedure Note Interface, External Ris In - 04/13/2018 9:47 AM AIR POLLUTION SPECIALIST FINAL REPORT ERCP 5 views 04/13/2018 9:44 AM CLINICAL HISTORY: Instrument localization COMPARISON: None available IMPRESSION: Please correlate imaging report findings with the procedure note prepared by Dr. Abraham, as an intra-procedure imaging consultation was not requested. Reported fluoroscopy time: 72.8 seconds. Signed: Dieudonne Olivarez MD Report Verified Date/Time: 04/13/2018 09:45:14 Reading Location: [address] Neuro Reading Room Performing Organization Address [facility]/Zipcode Phone Number [facility] * REPORT OF PROCEDURE - ENDOSCOPY URL (04/13/2018 8:34 AM AIR POLLUTION SPECIALIST) Narrative Performed At * Comprehensive metabolic panel (04/13/2018 4:00 AM AIR POLLUTION SPECIALIST) Protein, Total 6.5 6.0 - 8.3 gm/dL [facility] Albumin 2.7 (L) 3.5 - 5.0 g/dL [facility] Alkaline Phosphatase 101 40 - 150 U/L [facility] Total Bilirubin 2.0 (H) 0.2 - 1.2 mg/dL [facility] Sodium 131 (L) 136 - 145 meq/L [facility] Potassium 3.7 3.5 - 5.1 meq/L [facility] Chloride 98 98 - 107 meq/L [facility] CO2 25 22 - 29 meq/L [facility] BUN 19 7 - 21 mg/dL [facility] Creatinine 0.84 0.57 - 1.25 mg/dL [facility] Glucose 65 (L) 70 - 105 mg/dL [facility] Calcium 9.1 8.4 - 10.2 mg/dL [facility] AST 43 (H) 5 - 34 U/L [facility] ALT 23 6 - 55 U/L [facility] EGFR 70Comment: ESTIMATED GFR IS mL/min/1.73 sq m [facility] NOT ACCURATE CREATININE [facility] CLEARANCE IN PREDICTING GLOMERULAR FILTRATION RATE. ESTIMATED GFR IS NOT APPLICABLE FOR DIALYSIS PATIENTS. Specimen Blood Performing Organization Address City/State/Zipcode Phone Number [facility] [address] [place] [address] [facility] * US abdomen limited (04/12/2018 3:40 PM AIR POLLUTION SPECIALIST) Only the most recent of 2 results within the time period is included. Narrative Performed At FINAL REPORT [employer] INDICATION: Ascites. Limited abdominal ultrasound. IMPRESSION: Ultrasound examination of the abdomen was performed in preparation for paracentesis. However, only trace ascites is seen in the abdomen and pelvis, not amenable for safe drainage. Paracentesis is therefore not performed. Signed: Rolly Griffin MD Report Verified Date/Time:04/12/2018 15:41:37 Reading Location: [facility] [id number] Ortho Consult Reading Room Procedure Note Interface, External Ris In - 04/12/2018 3:43 PM AIR POLLUTION SPECIALIST FINAL REPORT INDICATION: Ascites. Limited abdominal ultrasound. IMPRESSION: Ultrasound examination of the abdomen was performed in preparation for paracentesis. However, only trace ascites is seen in the abdomen and pelvis, not amenable for safe drainage. Paracentesis is therefore not performed. Signed: Rolly Griffin MD Report Verified Date/Time: 04/12/2018 15:41:37 Reading Location: [place] [id number] Ortho Consult Reading Room Performing Organization Address [facility] Phone Number GE RIS * XR chest 1 view portable / bedside (04/12/2018 12:53 AM AIR POLLUTION SPECIALIST) Narrative Performed At FINAL REPORT [employer] INDICATION: sob EMESIS COMPARISON: None TECHNIQUE: Single frontal view of the chest. FINDINGS: Lungs and pleura: Poor inspiratory effort versus low lung volumes. No focal airspace consolidation. No effusion. Heart and mediastinum: Normal heart size. Unremarkable mediastinal contours. Osseous structures: No acute abnormality. Other: None. IMPRESSION: No acute intrathoracic abnormality. Signed: Seema Valles MD Report Verified Date/Time:04/12/2018 01:19:41 Reading Location: [facility] C013 Neuro Reading Room Procedure Note Interface, External Ris In - 04/12/2018 1:21 AM AIR POLLUTION SPECIALIST FINAL REPORT INDICATION: sob EMESIS COMPARISON: None TECHNIQUE: Single frontal view of the chest. FINDINGS: Lungs and pleura: Poor inspiratory effort versus low lung volumes. No focal airspace consolidation. No effusion. Heart and mediastinum: Normal heart size. Unremarkable mediastinal contours. Osseous structures: No acute abnormality. Other: None. IMPRESSION: No acute intrathoracic abnormality. Signed: Seema Valles MD Report Verified Date/Time: 04/12/2018 01:19:41 Reading Location: [facility] C013V Neuro Reading Room Performing Organization Address [facility] Cent[facility]ode Phone Number GE RIS * POC-Lactic Acid, Venous (04/12/2018 12:40 AM AIR POLLUTION SPECIALIST) POC-Lactic Acid, Venous 1.4Comment: TESTED AT [facility] 0.9 - 1.7 mmol/L [address] Specimen Blood Performing Organization Address City/State/Zipcode Phone Number [address] [address] [facility] * B-type Natriuretic Factor (BNP) (04/12/2018 12:37 AM AIR POLLUTION SPECIALIST) BNP 101 (H) 0 - 100 pg/mL [facility] Specimen Blood Performing Organization Address City/[facility] [place] [address] [facility] * Prothrombin time/INR (04/11/2018 10:55 PM AIR POLLUTION SPECIALIST) Protime 19.1 (H) 11.7 - 14.7 seconds [facility] INR 1.6 <=5.9 [facility] Specimen Blood Narrative Performed At RECOMMENDED COUMADIN/WARFARIN INR THERAPY RANGES [facility] STANDARD DOSE: 2.0 - 3.0 Includes: PROPHYLAXIS for venous thrombosis, [facility] systemic embolization; TREATMENT for venous thrombosis and/or pulmonary embolus. HIGH RISK: Target INR is 2.5-3.5 for patients with mechanical heart valves. Performing Organization Address City/[facility] [place] [address] [facility] * ECG/EKG Interpretation (04/11/2018 6:08 PM AIR POLLUTION SPECIALIST) Narrative Performed At Arun Rae MD 04/11/2018 11:51 PM ECG/EKG Interpretation Date/Time: 04/11/2018 4:24 PM Performed by: Arun Rae MD Authorized by: Arun Rae MD The ECG was interpreted by ED physician. This ECG was not compared with previous ECG(s).The ECG is interpreted as sinus rhythm. Rate is normal rate. Heart rate is 80 BPM. Conduction: conduction normal. ST segments normal. T waves normal. Clinical Impression: non-specific ECGECG reviewed and does not meet STEMI criteria. Patient tolerance: Patient tolerated the procedure well with no immediate complications * CBC with platelet count + automated diff (04/11/2018 4:47 PM AIR POLLUTION SPECIALIST) WBC 17.5 (H) 3.5 - 10.5 K/L [facility] RBC 4.29 3.93 - 5.22 M/L [facility] Hemoglobin 13.2 11.2 - 15.7 GM/DL [facility] Hematocrit 39.8 34.1 - 44.9 % [facility] MCV 92.8 79.4 - 94.8 fL [facility] MCH 30.8 25.6 - 32.2 pg [facility] MCHC 33.2 32.2 - 35.5 GM/DL [facility] RDW 12.9 11.7 - 14.4 % [facility] Platelets 210 150 - 450 K/CU MM [facility] MPV 11.1 9.4 - 12.3 fL [facility] nRBC 0 0 - 0 /100 WBC [facility] % Neutros 77 % [facility] % Lymphs 14 % [facility] % Monos 8 % [facility] % Eos 0 % [facility] % Baso 0 % [facility] # Neutros 13.50 (H) 1.56 - 6.13 K/L [facility] # Lymphs 2.49 1.18 - 3.74 K/L [facility] # Monos 1.42 (H) 0.24 - 0.36 K/L [facility] # Eos 0.00 (L) 0.04 - 0.36 K/L [facility] # Baso 0.03 0.01 - 0.08 K/L [facility] Immature 1 0 - 1 % [facility] Granulocytes-Relative [facility] Specimen Blood - Arm, Right Performing Organization Address City/State/Zipcode Phone Number [address] * Lipase (04/11/2018 4:47 PM AIR POLLUTION SPECIALIST) Lipase 10 8 - 78 U/L [facility] Specimen Blood - Arm, Right Narrative Performed At Specimen slightly icteric [facility] Performing Organization Address City/[facility] Centercode Phone Number [address] * Amylase (04/11/2018 4:47 PM AIR POLLUTION SPECIALIST) Amylase 45 25 - 125 U/L [facility] Specimen Blood - Arm, Right Narrative Performed At Specimen slightly icteric [facility] Performing Organization Address City/[facility] Phone Number [address] * Hepatic function panel (04/11/2018 4:47 PM AIR POLLUTION SPECIALIST) Protein, Total 7.1 6.0 - 8.3 gm/dL [facility] Albumin 3.0 (L) 3.5 - 5.0 g/dL [facility] Total Bilirubin 2.6 (H) 0.2 - 1.2 mg/dL [facility] Bilirubin, Direct 1.2 (H) 0.1 - 0.5 mg/dL [facility] Alkaline Phosphatase 113 40 - 150 U/L [facility] AST 46 (H) 5 - 34 U/L [facility] ALT 29 6 - 55 U/L [facility] Specimen Blood - Arm, Right Narrative Performed At Specimen slightly icteric [facility] Performing Organization Address City/State/Zipcode Phone Number [facility] [address] [place] [address] [facility] * ECG 12 lead (04/11/2018 4:24 PM AIR POLLUTION SPECIALIST) Narrative Performed At Ventricular Rate 80 BPM GE MUSE Atrial Rate 80 BPM P-R Interval 160 ms QRS Duration 80 ms Q-T Interval 438 ms QTC Calculation(Bazett) 505 ms P [place] 68 degrees R [place] 51 degrees T [place] 70 degrees Normal sinus rhythm Nonspecific T wave abnormality Prolonged QT Abnormal ECG No previous ECGs available Confirmed by Kwabena JACKSON, KENNETH ([id number]) on 04/12/2018 12:10:50 PM Procedure Note Interface, External Ris In - 04/12/2018 12:11 PM AIR POLLUTION SPECIALIST Ventricular Rate 80 BPM Atrial Rate 80 BPM P-R Interval 160 ms QRS Duration 80 ms Q-T Interval 438 ms QTC Calculation(Bazett) 505 ms P [place] 68 degrees R [place] 51 degrees T [place] 70 degrees Normal sinus rhythm Nonspecific T wave abnormality Prolonged QT Abnormal ECG No previous ECGs available Confirmed by Kwabena JACKSON, KENNETH ([id number]) on 04/12/2018 12:10:50 PM Performing Organization Address City/State/Zipcode Phone Number GE MUSE after 04/21/2017 Insurance Payer Benefit Subscriber ID Type Phone Address Plan / Group [facility] [employer] xxxxxxxxx CARE [employer] Advance Directives For more information, please contact: [address] [address] Date Inactivated Comments Code Status Date Activated Full Code 04/11/2018 10:30 PM This code status was determined by: Patient
[2018-04-22 14:23] LABS: BASOPHILS # (AUTO) 0.1 (0.0-0.1); BASOPHILS % 0.3 % (0.0-1.0); EOSINOPHILS # (AUTO) 0.1 (0.0-0.4); EOSINOPHILS % 0.6 % (0.0-6.0); HEMATOCRIT 38.1 % (34.2-44.1); HEMOGLOBIN 13.6 g/dL (12.0-16.0); LYMPHOCYTES % 8.5 % (18.0-39.1); MEAN CORPUSCULAR HEMOGLOBIN 31.7 pg (28-32); MEAN CORPUSCULAR HGB CONC 35.7 g/dL (31-35); MEAN CORPUSCULAR VOLUME 88.8 fL (81-99); MONOCYTES # (AUTO) 1.9 (0.2-0.8); NEUTROPHILS % 81.1 % (38.7-80.0); PLATELET COUNT 137 x10e3/uL (140-360); RED BLOOD COUNT 4.29 x10e6/uL (3.6-5.1); RED CELL DISTRIBUTION WIDTH 14.6 % (11.7-14.4)
[2018-04-22] MEDS ORDERED: SODIUM CHLORIDE 0.9% 1000ML 1,000 ML IV SCH (14:30)
[2018-04-22 14:35] LABS: INR 1.79; PROTHROMBIN TIME 22.2 seconds (11.9-14.5)
[2018-04-22 14:36] LABS: PARTIAL THROMBOPLASTIN TIME 36.1 seconds (23.8-35.5)
[2018-04-22 14:43] LABS: ALBUMIN 2.2 g/dL (3.5-5.0); ALBUMIN/GLOBULIN RATIO 0.6 (0.8-2.0); ANION GAP 12.9 mmol/L (8-16); CALCIUM 8.4 mg/dL (8.4-10.2); CREATININE, SERUM 1.1 mg/dL (0.57-1.11); MAGNESIUM 1.9 MG/DL (1.3-2.1); POTASSIUM 3.9 mmol/L (3.5-5.1)
[2018-04-22 15:03] LABS: CREATINE KINASE MB 2.1 ng/mL (0-5.0); THYROID STIMULATING HORMONE 2.425 uIU/mL (0.350-4.940)
[2018-04-22] MEDS ORDERED: HYDROMORPHONE 2MG/ML 2 MG/ML ML ONE (16:30)
[2018-04-22] MEDS ORDERED: ONDANSETRON HCL INJ 2MG/ML 2ML 2 MG/ML VIAL ONE (16:30)
[2018-04-22 17:04] LABS: LYMPHOCYTES % (MANUAL) 2 % (19-48); MONOCYTES % (MANUAL) 9 % (3.4-9.0); NEUTROPHILS % (MANUAL) 89 % (40-74); PLATELET ESTIMATE SLIGHTLY DECREASED; PLATELET MORPHOLOGY COMMENT NORMAL; RBC MORPHOLOGY COMMENT NORMAL
[2018-04-22] MEDS ORDERED: PIPER-TAZ 3.375 GM 50 ML IV STA (17:12)
[2018-04-22] MEDS ORDERED: VANCOMYCIN 1GM/NS 250 ML 250 ML IV STA (17:12)
[2018-04-22] MEDS ORDERED: ONDANSETRON HCL INJ 2MG/ML 2ML 2 MG/ML VIAL IV NR (18:15)
[2018-04-22] MEDS ORDERED: HYDROMORPHONE 1MG/1ML INJ IV NR (18:15)
--- NOTE | 2018-04-22 18:25 | Diagnostic Imaging Report ---
EXAM: CT of the abdomen and pelvis WITH contrast HISTORY: Pain, 1 WEEK POST CHOLECYSTECTOMY RLQ ABD PAIN COMPARISON: None available. TECHNIQUE: The abdomen and pelvis were scanned utilizing a multidetector helical scanner. Coronal and sagittal reformats are provided. PROTOCOL: Routine IV CONTRAST: 100 cc of Isovue-370. ORAL CONTRAST: Water RADIATION DOSE: Total DLP: 795.79 mGy*cm Estimated effective dose: (DLP x 0.015 x size factor) Dose modulation, iterative reconstruction, and/or weight based adjustment of the mA/kV was utilized to reduce the radiation dose to as low as reasonably achievable. COMPLICATIONS: None FINDINGS: LOWER THORAX: Unremarkable. HEPATOBILIARY: The liver density is mildly heterogeneous with a nodular contour. Metallic clips in the right upper quadrant of the abdomen are compatible with prior cholecystectomy. SPLEEN: No splenomegaly. The spleen is heterogeneous with multiple geographic areas of hypodensity and lateral linear calcific density. PANCREAS: No focal masses or ductal dilatation. ADRENALS: Bilateral indeterminate adrenal nodules, 1.6 cm on the right and 1.4 cm on the left. KIDNEYS/URETERS: No hydronephrosis or calcified stone. Cortical scarring on the right. PELVIC ORGANS/BLADDER: The urinary bladder is partially decompressed, which limits evaluation. PERITONEUM / RETROPERITONEUM: Small volume low density ascites, predominantly surrounding the liver and the right pelvis a small amount of intermediate density within the dependent portion of the fluid around the liver (for example series 2 image 40). No loculated abscess. LYMPH NODES: No pathologically enlarged lymph node. VESSELS: Likely cavernous transformation of the oral vein. Scattered atherosclerotic vascular calcifications, including the coronary arteries. Irregular mixed calcified and noncalcified thrombus within the proximal abdominal aorta (for example series 2 images 30 and 33). GI TRACT: No distention or wall thickening identified. The appendix is normal. Scattered colonic diverticuli, without CT evidence of acute diverticulitis. BONES: No aggressive osseous lesion or acute fracture. SOFT TISSUES: Diffuse nonspecific soft tissue edema, right greater than left. No loculated drainable fluid collection. IMPRESSION: 1. Status post cholecystectomy. 2. 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 3. Small volume ascites, most likely related to the cirrhosis, but a postsurgical bile leak may be a consideration the appropriate setting. 4. Bilateral indeterminate adrenal nodules. Recommend a follow-up nonemergent CT of the abdomen with and without contrast (adrenal mass protocol) for further characterization. 5. Prominent atherosclerosis, including the coronary arteries. 6. Colonic diverticulosis. 7. 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 Signed by: Dr. Hira Sorensen D.O., M.M.M. on 04/22/2018 6:22 PM
[2018-04-22 18:42] LABS: BILIRUBIN,URINE NEGATIVE (NEGATIVE); CLARITY,URINE CLEAR (CLEAR); COLOR,URINE YELLOW (YELLOW); KETONES,URINE NEGATIVE (NEGATIVE); LEUKOCYTE ESTERASE ,URINE NEGATIVE (NEGATIVE); NITRITE,URINE NEGATIVE (NEGATIVE); PROTEIN,URINE DIPSTICK NEGATIVE (NEGATIVE); URINE UROBILINOGEN 0.2 mg/dL (0.2 - 1)
[2018-04-22 18:48] LABS: AMORPHOUS SEDIMENT,URINE MANY (FEW); BACTERIA,URINE MODERATE /HPF
[2018-04-22] MEDS ORDERED: ATORVASTATIN CA20 MG PO (19:46)
[2018-04-22] MEDS ORDERED: PLAVIX75 MG PO (19:46)
[2018-04-22] MEDS ORDERED: FOLIC ACID1 MG PO (19:46)
[2018-04-22] MEDS ORDERED: thiamine PO (19:46)
[2018-04-22] MEDS ORDERED: SPIRONOLACTONE50 MG PO (19:46)
[2018-04-22] MEDS ORDERED: ULTRAM 50MG50 MG PO (19:46)
[2018-04-22] MEDS ORDERED: DULERA 100 MCG/13 GM INH (19:46)
[2018-04-22] MEDS ORDERED: METOPROLOL TART50 MG PO (19:46)
[2018-04-22] MEDS ORDERED: GABAPENTIN300 MG PO (19:46)
--- OUTSIDE RECORDS SUMMARY | 2018-04-22 19:52 | XMS REPORT | Clinical Summary ---
Author Author KEARA [facility] Address Unknown Phone Unavailable Care Team Providers Care [employer] Member Name Role Phone Flor Rey MD PCP [...] Taken Vital Sign Reading 04/17/2018 8:00 AM HADOOP ANALYST Blood Pressure 104/57 04/17/2018 8:00 AM HADOOP ANALYST Pulse 75 04/17/2018 8:00 AM HADOOP ANALYST Temperature 36.1 C (97 F) 04/17/2018 8:00 AM HADOOP ANALYST Respiratory Rate 18 04/17/2018 8:00 AM HADOOP ANALYST Oxygen Saturation 93% - Inhaled Oxygen - Concentration 04/11/2018 3:58 PM HADOOP ANALYST Weight 86.6 kg (191 lb) 04/11/2018 3:58 PM HADOOP ANALYST Height 157.5 cm (5' 2") 04/11/2018 3:58 PM HADOOP ANALYST Body Mass Index 34.93 Plan of Treatment Not on file Procedures Comments Procedure Name Priority Date/Time Associated Diagnosis TRANSFUSION SERVICE 04/17/2018 REPORT - SCAN 6:00 PM HADOOP ANALYST HEMOGLOBIN AND HEMATOCRIT Routine 04/17/2018 3:22 AM HADOOP ANALYST BASIC METABOLIC PANEL (7) Routine 04/17/2018 3:22 AM HADOOP ANALYST TISSUE EXAM AP Routine 04/16/2018 3:06 PM HADOOP ANALYST TYPE AND SCREEN, Routine 04/16/2018 AUTOMATED 2:55 PM HADOOP ANALYST LAPAROSCOPY,CHOLECYSTECTO 04/16/2018 Cholecystitis MY 1:50 PM HADOOP ANALYST Special Needs REQ TF BASIC METABOLIC PANEL (7) Routine 04/16/2018 4:55 AM HADOOP ANALYST XR ABDOMEN 1 VIEW Routine 04/15/2018 6:00 PM HADOOP ANALYST ECHOCARDIOGRAM REPORT - 04/15/2018 SCAN 4:20 PM HADOOP ANALYST 2D ECHO W/ DOPPLER Routine 04/15/2018 (CW/PW/COLOR) 1:24 PM HADOOP ANALYST CBC (HEMOGRAM ONLY) Routine 04/15/2018 3:07 AM HADOOP ANALYST BASIC METABOLIC PANEL (7) Routine 04/15/2018 3:07 AM HADOOP ANALYST BASIC METABOLIC PANEL (7) Routine 04/14/2018 6:01 AM HADOOP ANALYST CBC (HEMOGRAM ONLY) Routine 04/14/2018 6:01 AM HADOOP ANALYST FL ERCP Routine 04/13/2018 8:35 AM HADOOP ANALYST REPORT OF PROCEDURE - 04/13/2018 ENDOSCOPY URL 8:34 AM HADOOP ANALYST ERCP,BALLOON SWEEPING 04/13/2018 Common bile duct (CBD) 8:00 AM HADOOP ANALYST obstruction PROCEDURE W/ C-ARM 04/13/2018 Common bile duct (CBD) 8:00 AM HADOOP ANALYST obstruction ERCP 04/13/2018 Common bile duct (CBD) 8:00 AM HADOOP ANALYST obstruction CBC (HEMOGRAM ONLY) Routine 04/13/2018 4:00 AM HADOOP ANALYST COMPREHENSIVE METABOLIC Routine 04/13/2018 PANEL 4:00 AM HADOOP ANALYST US ABDOMEN LIMITED STAT 04/12/2018 3:40 PM HADOOP ANALYST XR CHEST 1 VIEW STAT 04/12/2018 PORTABLE/BEDSIDE 12:53 AM HADOOP ANALYST POCT-LACTIC ACID, VENOUS Routine 04/12/2018 12:40 AM HADOOP ANALYST B-TYPE NATRIURETIC FACTOR Routine 04/12/2018 (BNP) 12:37 AM HADOOP ANALYST PROTHROMBIN TIME/INR STAT 04/11/2018 10:55 PM HADOOP ANALYST US ABDOMEN LIMITED STAT 04/11/2018 8:37 PM HADOOP ANALYST ED ECG INTERPRETATION Routine 04/11/2018 6:08 PM HADOOP ANALYST CBC W/PLT COUNT & AUTO STAT 04/11/2018 DIFFERENTIAL 4:47 PM HADOOP ANALYST CBC W/PLT COUNT & AUTO STAT 04/11/2018 DIFFERENTIAL 4:47 PM HADOOP ANALYST LIPASE STAT 04/11/2018 4:47 PM HADOOP ANALYST AMYLASE STAT 04/11/2018 4:47 PM HADOOP ANALYST HEPATIC FUNCTION PANEL STAT 04/11/2018 4:47 PM HADOOP ANALYST BASIC METABOLIC PANEL (7) STAT 04/11/2018 4:47 PM HADOOP ANALYST ECG 12-LEAD Routine 04/11/2018 4:24 PM HADOOP ANALYST Procedure Note - Interface, External Ris In - 04/11/2018 6:21 PM HADOOP ANALYST Ventricula r Rate 80 BPM Atrial Rate 80 BPM P-R Interval 160 ms QRS Duration 80 ms Q-T Interval 438 ms QTC Calculatio n(Bazett) 505 ms P [place] 68 degrees R [place] 51 degrees T [place] 70 degrees Normal sinus rhythm Nonspecifi c T wave abnormalit y Prolonged QT Abnormal ECG No previous ECGs available ECG 12-LEAD STAT 04/11/2018 4:24 PM HADOOP ANALYST after 04/21/2017 Results * TRANSFUSION SERVICE REPORT - SCAN (04/17/2018 6:00 PM HADOOP ANALYST) Narrative Performed At * Hemoglobin and hematocrit (04/17/2018 3:22 AM HADOOP ANALYST) Hemoglobin 12.5 11.2 - 15.7 GM/DL [facility] Hematocrit 37.7 34.1 - 44.9 % [facility] Specimen Blood - Arm, Left Performing Organization Address [facility] Phone Number [facility] [address] [place] [address] [phone] [place] [address] * Basic Metabolic Panel (04/17/2018 3:22 AM HADOOP ANALYST) Only the most recent of 5 results within the time period is included. Sodium 132 (L) 136 - 145 meq/L [facility] Potassium 4.6 3.5 - 5.1 meq/L [facility] Chloride 94 (L) 98 - 107 meq/L [facility] CO2 30 (H) 22 - 29 meq/L [facility] BUN 15 7 - 21 mg/dL [facility] Creatinine 0.94 0.57 - 1.25 mg/dL [facility] Glucose 69 (L) 70 - 105 mg/dL [facility] Calcium 9.1 8.4 - 10.2 mg/dL [facility] EGFR 61Comment: ESTIMATED GFR IS mL/min/1.73 sq m [facility] NOT ACCURATE CREATININE [facility] CLEARANCE IN PREDICTING GLOMERULAR FILTRATION RATE. ESTIMATED GFR IS NOT APPLICABLE FOR DIALYSIS PATIENTS. Specimen Blood - Arm, Left Performing Organization Address City/[facility] Phone Number [place] [phone] [place], [place] [phone] [facility] * Tissue Exam (04/16/2018 3:06 PM HADOOP ANALYST) Case Report Surgical Pathology [facility] Report [facility] Case: [id number] Authorizing Provider:Manoj Muñoz MD Collected: 04/16/2018 1506 Ordering Location: [facility] PERIOPERATIVE Received: 04/17/2018 0852 SERVICES Pathologist: Kenneth Shaw MD Specimen:Gallbladder DIAGNOSIS GALLBLADDER, CHOLECYSTECTOMY: [facility] - ACUTE AND CHRONIC [facility] CHOLECYSTITIS WITH CHOLELITHIASIS Signing Pathologist Direct Phone Line: [phone] CPT Code(s) [address]175 [facility] CLINICAL HISTORY Cholecystitis [facility] SPECIMEN SOURCE Gallbladder [facility] GROSS DESCRIPTION The specimen is received in [facility] formalin-filled container and [facility] labeled with the patient's information [...] A2, gallbladder wall. CG/pl MICROSCOPIC DESCRIPTION Performed [facility] Specimen Tissue - Gallbladder Performing Organization Address City/[facility] Cent[facility] Phone Number [address] [address] [phone] [place] [address] * Type and screen, automated (04/16/2018 2:55 PM HADOOP ANALYST) ABO/RH AUTOMATED (BEAKER) O POSITIVE [facility] Ab Scrn NEGATIVE [facility] Specimen Blood Performing Organization Address City/[facility]/Zipcode Phone Number [address] [address] [facility] * XR abdomen / KUB 1 view (04/15/2018 6:00 PM HADOOP ANALYST) Narrative Performed At FINAL REPORT [facility] Abdomen one view supine 04/15/2018 8:41 PM CLINICAL INDICATION: Abdominal pain COMPARISON: None available IMPRESSION: There is no radiographic evidence of bowel obstruction. There is mild ileus. No abnormal calcifications are seen in the region of the gallbladder or kidneys. There are no acute-appearing skeletal abnormalities.. Signed: Dieudonne Olivarez MD Report Verified Date/Time:04/15/2018 20:41:57 Reading Location: [facility] Radiology Reading Room Procedure Note Interface, External Ris In - 04/15/2018 8:44 PM HADOOP ANALYST FINAL REPORT Abdomen one view supine 04/15/2018 8:41 PM CLINICAL INDICATION: Abdominal pain COMPARISON: None available IMPRESSION: There is no radiographic evidence of bowel obstruction. There is mild ileus. No abnormal calcifications are seen in the region of the gallbladder or kidneys. There are no acute-appearing skeletal abnormalities.. Signed: Dieudonne Olivarez MD Report Verified Date/Time: 04/15/2018 20:41:57 Reading Location: [facility] Radiology Reading Room Performing Organization Address City/State/Zipcode Phone Number [facility] * ECHOCARDIOGRAM REPORT - SCAN (04/15/2018 4:20 PM HADOOP ANALYST) Narrative Performed At * 2D Echo W/Doppler(CW/PW/Color) (04/15/2018 1:24 PM HADOOP ANALYST) Ejection Fraction [facility] ECHO HEARTLAB [facility] Narrative Performed At Transthoracic Echocardiography Report (TTE) [facility] ECHO HEARTLAB Demographics [facility] Patient NameADRIANA ALLAN Date of Study04/15/2018 ADDI Gender Female Visit [id number] Race Unknown [id number] Number Date of 1960 Referring PhysicianDang Ike Carter Age 57 year(s) 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 Ashley 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 Flaquito Albarran MD Physician Procedure Type of [...] External Ris In - 04/15/2018 3:40 PM HADOOP ANALYST Transthoracic Echocardiography Report (TTE) Demographics Patient Name ADRIANA ALLAN Date of Study 04/15/2018 ADDI Gender Female Visit Number [id number] Race Unknown Room Number 1530 Number Date of 1960 Referring Physician Cece Carter Age 57 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 WBC 9.3 3.5 - 10.5 K/L [facility] RBC 4.10 3.93 - 5.22 M/L [facility] Hemoglobin 12.6 11.2 - 15.7 GM/DL [facility] Hematocrit 36.9 34.1 - 44.9 % [facility] MCV 90.0 79.4 - 94.[address] [facility] MCH 30.7 25.6 - 32.[address] [facility] MCHC 34.1 32.2 - 35.5 GM/DL [facility] RDW 12.9 11.7 - 14.4 % [facility] Platelets 230 150 - 450 K/CU MM [facility] MPV 10.1 9.4 - 12.[address] [facility] nRBC 0 0 - 0 /[address] [facility] Specimen Blood - Arm, Left Performing Organization Address City/[facility]/Zipcode Phone Number [facility] [address] [place] [address] MEDICAL CENTER * FL ERCP (04/13/2018 8:35 AM HADOOP ANALYST) Narrative Performed At FINAL REPORT [facility] ERCP 5 views 04/13/2018 9:44 AM CLINICAL HISTORY: Instrument localization COMPARISON: None available IMPRESSION: Please correlate imaging report findings with the procedure note prepared by Dr. Abraham, as an intra-procedure imaging consultation was not requested. Reported fluoroscopy time: 72.8 seconds. Signed: Dieudonne Olivarez MD Report Verified Date/Time:04/13/2018 09:45:14 Reading Location: [address] Neuro Reading Room Procedure Note Interface, External Ris In - 04/13/2018 9:47 AM HADOOP ANALYST FINAL REPORT ERCP 5 views 04/13/2018 9:44 AM CLINICAL HISTORY: Instrument localization COMPARISON: None available IMPRESSION: Please correlate imaging report findings with the procedure note prepared by Dr. Abraham, as an intra-procedure imaging consultation was not requested. Reported fluoroscopy time: 72.8 seconds. Signed: Dieudonne Olivarez MD Report Verified Date/Time: 04/13/2018 09:45:14 Reading Location: [address] Neuro Reading Room Performing Organization Address [facility]/Zipcode Phone Number [facility] * REPORT OF PROCEDURE - ENDOSCOPY URL (04/13/2018 8:34 AM HADOOP ANALYST) Narrative Performed At * Comprehensive metabolic panel (04/13/2018 4:00 AM HADOOP ANALYST) Protein, Total 6.5 6.0 - 8.3 gm/dL [facility] Albumin 2.7 (L) 3.5 - 5.0 g/dL [facility] Alkaline Phosphatase 101 40 - 150 U/L [facility] Total Bilirubin 2.0 (H) 0.2 - 1.2 mg/dL [facility] Sodium 131 (L) 136 - 145 meq/L [facility] Potassium 3.7 3.5 - 5.1 meq/L [facility] Chloride 98 98 - 107 meq/L [facility] CO2 25 22 - 29 meq/L [facility] BUN 19 7 - 21 mg/dL [facility] Creatinine 0.84 0.57 - 1.25 mg/dL [facility] Glucose 65 (L) 70 - 105 mg/dL [facility] Calcium 9.1 8.4 - 10.2 mg/dL [facility] AST 43 (H) 5 - 34 U/L [facility] ALT 23 6 - 55 U/L [facility] EGFR 70Comment: ESTIMATED GFR IS mL/min/1.73 sq m [facility] NOT ACCURATE CREATININE [facility] CLEARANCE IN PREDICTING GLOMERULAR FILTRATION RATE. ESTIMATED GFR IS NOT APPLICABLE FOR DIALYSIS PATIENTS. Specimen Blood Performing Organization Address City/State/Zipcode Phone Number [facility] [address] [place] [address] [facility] * US abdomen limited (04/12/2018 3:40 PM HADOOP ANALYST) Only the most recent of 2 results within the time period is included. Narrative Performed At FINAL REPORT Talk[facility] INDICATION: Ascites. Limited abdominal ultrasound. IMPRESSION: Ultrasound examination of the abdomen was performed in preparation for paracentesis. However, only trace ascites is seen in the abdomen and pelvis, not amenable for safe drainage. Paracentesis is therefore not performed. Signed: Rolly Griffin MD Report Verified Date/Time:04/12/2018 15:41:37 Reading Location: [facility] [id number] Ortho Consult Reading Room Procedure Note Interface, External Ris In - 04/12/2018 3:43 PM HADOOP ANALYST FINAL REPORT INDICATION: Ascites. Limited abdominal ultrasound. IMPRESSION: Ultrasound examination of the abdomen was performed in preparation for paracentesis. However, only trace ascites is seen in the abdomen and pelvis, not amenable for safe drainage. Paracentesis is therefore not performed. Signed: Rolly Griffin MD Report Verified Date/Time: 04/12/2018 15:41:37 Reading Location: [place] [id number] Ortho Consult Reading Room Performing Organization Address [facility] Phone Number GE [facility]IS * XR chest 1 view portable / bedside (04/12/2018 12:53 AM HADOOP ANALYST) Narrative Performed At FINAL REPORT [employer] INDICATION: sob EMESIS COMPARISON: None TECHNIQUE: Single frontal view of the chest. FINDINGS: Lungs and pleura: Poor inspiratory effort versus low lung volumes. No focal airspace consolidation. No effusion. Heart and mediastinum: Normal heart size. Unremarkable mediastinal contours. Osseous structures: No acute abnormality. Other: None. IMPRESSION: No acute intrathoracic abnormality. Signed: Seema Valles MD Report Verified Date/Time:04/12/2018 01:19:41 Reading Location: [facility] C013 Neuro Reading Room Procedure Note Interface, External Ris In - 04/12/2018 1:21 AM HADOOP ANALYST FINAL REPORT INDICATION: sob EMESIS COMPARISON: None TECHNIQUE: Single frontal view of the chest. FINDINGS: Lungs and pleura: Poor inspiratory effort versus low lung volumes. No focal airspace consolidation. No effusion. Heart and mediastinum: Normal heart size. Unremarkable mediastinal contours. Osseous structures: No acute abnormality. Other: None. IMPRESSION: No acute intrathoracic abnormality. Signed: Seema Valles MD Report Verified Date/Time: 04/12/2018 01:19:41 Reading Location: [facility] [id number] Neuro Reading Room Performing Organization Address [facility] Cent[facility]ode Phone Number GE [facility] * POC-Lactic Acid, Venous (04/12/2018 12:40 AM HADOOP ANALYST) POC-Lactic Acid, Venous 1.4Comment: TESTED AT [facility] 0.9 - 1.7 mmol/L [address] Specimen Blood Performing Organization Address City/State/Zipcode Phone Number [address] [address] [facility] * B-type Natriuretic Factor (BNP) (04/12/2018 12:37 AM HADOOP ANALYST) BNP 101 (H) 0 - 100 pg/mL [facility] Specimen Blood Performing Organization Address City/[facility] [place] [address] [facility] * Prothrombin time/INR (04/11/2018 10:55 PM HADOOP ANALYST) Protime 19.1 (H) 11.7 - 14.[address] [facility] INR 1.6 <=5.9 [facility] Specimen Blood Narrative Performed At RECOMMENDED COUMADIN/WARFARIN INR THERAPY RANGES [facility] STANDARD DOSE: 2.0 - 3.0 Includes: PROPHYLAXIS for venous thrombosis, [facility] systemic embolization; TREATMENT for venous thrombosis and/or pulmonary embolus. HIGH RISK: Target INR is 2.5-3.5 for patients with mechanical heart valves. Performing Organization Address City/[facility] [place] [address] [facility] * ECG/EKG Interpretation (04/11/2018 6:08 PM HADOOP ANALYST) Narrative Performed At Arun Rae MD 04/11/2018 [...] count + automated diff (04/11/2018 4:47 PM HADOOP ANALYST) WBC 17.5 (H) 3.5 - 10.5 K/L [facility] RBC 4.29 3.93 - 5.22 M/L [facility] Hemoglobin 13.2 11.2 - 15.7 GM/DL [facility] Hematocrit 39.8 34.1 - 44.9 % [facility] MCV 92.8 79.4 - 94.[address] [facility] MCH 30.8 25.6 - 32.[address] [facility] MCHC 33.2 32.2 - 35.5 GM/DL [facility] RDW 12.9 11.7 - 14.4 % [facility] Platelets 210 150 - 450 K/CU MM [facility] MPV 11.1 9.4 - 12.[address] [facility] nRBC 0 0 - 0 /[address] [facility] % Neutros 77 % [facility] % Lymphs 14 % [facility] % Monos 8 % [facility] % Eos 0 % [facility] % Baso 0 % [facility] # Neutros 13.50 (H) 1.56 - 6.13 K/L [facility] # Lymphs 2.49 1.18 - 3.74 K/L [facility] # Monos 1.42 (H) 0.24 - 0.36 K/L [facility] # Eos 0.00 (L) 0.04 - 0.36 K/L [facility] # Baso 0.03 0.01 - 0.08 K/L [facility] Immature 1 0 - 1 % [facility] Granulocytes-Relative [facility] Specimen Blood - Arm, Right Performing Organization Address City/State/Zipcode Phone Number [address] * Lipase (04/11/2018 4:47 PM HADOOP ANALYST) Lipase 10 8 - 78 U/L [facility] Specimen Blood - Arm, Right Narrative Performed At Specimen slightly icteric [facility] Performing Organization Address City/[facility] Cent[facility]ode Phone Number [address] * Amylase (04/11/2018 4:47 PM HADOOP ANALYST) Amylase 45 25 - 125 U/L [facility] Specimen Blood - Arm, Right Narrative Performed At Specimen slightly icteric [facility] Performing Organization Address City/[facility]t Phone Number [address] * Hepatic function panel (04/11/2018 4:47 PM HADOOP ANALYST) Protein, Total 7.1 6.0 - 8.3 gm/dL [facility] Albumin 3.0 (L) 3.5 - 5.0 g/dL [facility] Total Bilirubin 2.6 (H) 0.2 - 1.2 mg/dL [facility] Bilirubin, Direct 1.2 (H) 0.1 - 0.5 mg/dL [facility] Alkaline Phosphatase 113 40 - 150 U/L [facility] AST 46 (H) 5 - 34 U/L [facility] ALT 29 6 - 55 U/L [facility] Specimen Blood - Arm, Right Narrative Performed At Specimen slightly icteric [facility] Performing Organization Address City/State/Zipcode Phone Number [facility] [address] [place] [address] MEDICAL CENTER * ECG 12 lead (04/11/2018 4:24 PM HADOOP ANALYST) Narrative Performed At Ventricular Rate 80 BPM GE MUSE Atrial Rate 80 BPM P-R Interval 160 ms QRS Duration 80 ms Q-T Interval 438 ms QTC Calculation(Bazett) 505 ms P [place] 68 degrees R [place] 51 degrees T [place] 70 degrees Normal sinus rhythm Nonspecific T wave abnormality Prolonged QT Abnormal ECG No previous ECGs available Confirmed by Kwabena JACKSON, KENNETH ([id number]) on 04/12/2018 12:10:50 PM Procedure Note Interface, External Ris In - 04/12/2018 12:11 PM HADOOP ANALYST Ventricular Rate 80 BPM Atrial Rate 80 BPM P-R Interval 160 ms QRS Duration 80 ms Q-T Interval 438 ms QTC Calculation(Bazett) 505 ms P [place] 68 degrees R [place] 51 degrees T [place] 70 degrees Normal sinus rhythm Nonspecific T wave abnormality Prolonged QT Abnormal ECG No previous ECGs available Confirmed by Kwabena JACKSON, KENNETH ([id number]) on 04/12/2018 12:10:50 PM Performing Organization Address City/State/Zipcode Phone Number GE MUSE after 04/21/2017 Insurance Payer Benefit Subscriber ID Type Phone Address Plan / Group [facility] MEDICARE MGD [employer] xxxxxxxxx CARE MAPS Advance Directives For more information, please contact: [address] [address] Date Inactivated Comments Code Status Date Activated Full Code 04/11/2018 10:30 PM This code status was determined by: Patient
[2018-04-22] MEDS ORDERED: IOPAMIDOL 370 MG/ML 200 ML INFUS..BTL INJ ONE (20:44)
[2018-04-22] MEDS ORDERED: SODIUM CHLORIDE 0.9% 50ML 50 ML ONE (20:44)
[2018-04-22] MEDS: SODIUM CHLORIDE 0.9% 1000ML 1,000 ML IV SCH (22:39)
[2018-04-23] MEDS: PIPER-TAZ 3.375 GM 50 ML IV SCH ×4 (00:30→20:00)
[2018-04-23] MEDS: HYDROMORPHONE 2MG/ML 2 MG/ML ML IV PRN ×2 (01:30→08:19)
[2018-04-23] MEDS: ONDANSETRON HCL INJ 2MG/ML 2ML 2 MG/ML VIAL IV PRN ×3 (01:30→21:00)
[2018-04-23] MEDS: SODIUM CHLORIDE 0.9% 1000ML 1,000 ML IV SCH ×3 (04:22→12:21)
[2018-04-23 06:15] LABS: BASOPHILS # (AUTO) 0.1 (0.0-0.1); BASOPHILS % 0.6 % (0.0-1.0); EOSINOPHILS # (AUTO) 0.2 (0.0-0.4); EOSINOPHILS % 0.9 % (0.0-6.0); HEMATOCRIT 35.4 % (34.2-44.1); HEMOGLOBIN 11.9 g/dL (12.0-16.0); LYMPHOCYTES # (AUTO) 2.1 (1.0-3.2); MEAN CORPUSCULAR HEMOGLOBIN 30.7 pg (28-32); MEAN CORPUSCULAR HGB CONC 33.6 g/dL (31-35); MEAN CORPUSCULAR VOLUME 91.5 fL (81-99); MONOCYTES # (AUTO) 2.3 (0.2-0.8); MONOCYTES % 9.9 % (4.4-11.3); NEUTROPHILS # (AUTO) 17.7 (2.1-6.9); NEUTROPHILS % 77.4 % (38.7-80.0); PLATELET COUNT 120 x10e3/uL (140-360); RED BLOOD COUNT 3.87 x10e6/uL (3.6-5.1); RED CELL DISTRIBUTION WIDTH 14.4 % (11.7-14.4)
[2018-04-23 06:32] LABS: ANION GAP 12.5 mmol/L (8-16); CALCIUM 7.5 mg/dL (8.4-10.2); CREATININE, SERUM 1.05 mg/dL (0.57-1.11); POTASSIUM 3.5 mmol/L (3.5-5.1)
--- NOTE | 2018-04-23 07:00 | NUR ---
Bedside report recieved from Zacarias CASTRO.
[2018-04-23] MEDS ORDERED: VANCOMYCIN 1GM/NS 250 ML 250 ML IV SCH (09:00)
--- NOTE | 2018-04-23 09:33 | NUR ---
Pt is noted to be resting in bed with eyes closed at this time.
--- NOTE | 2018-04-23 11:45 | NUR ---
RECD PT FROMER VIA BED AWAKE,DENIES PAIN,RT SIDE ABDOME RED AND WARM TO TOUCH,AFEBRILE,IV IN FUSING TO LT AC,O2 2L NC IN PLACE.
--- NOTE | 2018-04-23 12:35 | NUR ---
Pt report given to Leti OWEN.
[2018-04-23 13:05] VITALS: BP 137/77
[2018-04-23] MEDS ORDERED: TRAMADOL HCL 50 MG TAB PO PRN (13:15)
[2018-04-23 14:00] VITALS: BP 137/77
[2018-04-23] MEDS ORDERED: PIPER-TAZ 3.375 GM 50 ML IV SCH (14:00)
[2018-04-23] MEDS ORDERED: SINCALIDE 3 MCG/VIAL INJ ONE (14:45)
--- NOTE | 2018-04-23 14:45 | NUR ---
PT TRANSPORTED TO [facility] VIA W/C
--- NOTE | 2018-04-23 15:00 | NUR ---
CASE MANAGEMENT INITIAL ASSESSMENT [place] to bedside to discuss plan of care with patient/family. CM/SW role and care transitions discussed. Anticipated discharge plan discussed along with duration of care. CM/SW discussed patients right to make decisions in care. CM/SW work hours given. Patient lives: SISTER Admit/Transfer: ER POA/Emergency contact: AARON LOZA [phone] Current/Previous Home Health: NONE PCP/Follow-up Care: DR EDGARDO BENNETT Current/Previous DME: DEBORAH Other Services: NONE Employment Status: UNEMPLOYED Areas of Concerns: NONE Referral Needs: MAY NEED HOME HEALTH Education Needs: F/U APPTS IMM/STAPLETON given and signed (if applicable): IMM ON ADMIT THRU ER Goal for discharge:DISCHARGE HOME WITH SISTER SOON CM/SW left business card at the bedside with contact information. Name and number was also written on the patients whiteboard. Patient verbalized understanding of discussion. CM will follow-up with ongoing discharge and transition of care needs.
[2018-04-23 15:56] VITALS: BP 135/60
[2018-04-23] MEDS: PROPRANOLOL HCL 10 MG TAB PO SCH (17:00)
[2018-04-23] MEDS: FAMOTIDINE 20 MG/2 ML VIAL IV SCH (17:00)
[2018-04-23] MEDS: LACTATED RINGER'S 1,000 ML IV SCH (17:30)
--- NOTE | 2018-04-23 17:30 | NUR ---
PT RETURNED TO ROOM VIA STRETCHER,DENIES PAIN,DR CASSIDY HERE
--- NOTE | 2018-04-23 19:40 | NUR ---
Received change of shift report from AM nurse. Walking rounds completed.
--- NOTE | 2018-04-23 19:45 | Diagnostic Imaging Report ---
Post-Cholecystectomy HIDA Scan Clinical information: 57 F now 6 days s/p laparoscopic cholecystectomy with persistent abdominal pain Report: Following intravenous administration of 6.0 mCi of technetium-99m mebrofenin, dynamic images of the abdomen in the anterior projection were obtained through 55 minutes. Additional static images at 60 minutes were also obtained in the anterior and left lateral projections. Perfusion to the liver is normal. Extraction of tracer by the liver parenchyma is prolonged. Tracer appears in the biliary tract by 15 minutes post injection. Tracer is seen within the small bowel by 26 minutes. There is no tracer seen to suggest a remnant cystic duct. There is no reflux of tracer from the duodenum to the stomach seen during the imaging time. No tracer is seen in the gallbladder fossa, along the liver capsule, in the right or left pericolic gutter or in the peritoneal cavity. Impression: 1. No scan evidence of a bile leak. 2. No remnant cystic duct seen. 3. No bile reflux into the stomach is seen during the imaging time. 4. No evidence of dysfunction of the sphincter of Oddi or biliary dyskinesia. 5. MIldly impaired hepatocyte function is noted. Correlate with liver enzymes. Signed by: Dr. Sharonda Álvarez M.D. on 04/23/2018 7:42 PM
[2018-04-23 20:00] VITALS: BP 161/77
[2018-04-23] MEDS ORDERED: FLUCONAZOLE 100 MG TAB PO ONE (20:00)
[2018-04-23] MEDS: MORPHINE SULFATE INJ 4 MG/ML INJ 1ML IV PRN (21:00)
[2018-04-23 22:22] LABS: ALBUMIN 1.9 g/dL (3.5-5.0); BILIRUBIN,DIRECT 1.8 mg/dL (0.0-0.5)
--- NOTE | 2018-04-23 23:00 | NUR ---
Patient AAOx2-3 with periods of confusion. Patient to have MRCP tomorrow. Patient c/o itching. Received one dose of antibiotic. Patient IV not good. Restarted 22G to right chest wall.
[2018-04-24] VITALS (7 sets, daily range): BP systolic 114–167; BP diastolic 62–94
--- NOTE | 2018-04-24 00:05 | Consultation ---
DATE OF CONSULTATION: April 23, 2018 GI CONSULT NOTE REFERRING PHYSICIAN: Casandra Espinosa MD REASON FOR CONSULT: Acute onset of acutely persistent right upper quadrant pain post cholecystectomy. HISTORY OF PRESENTING ILLNESS: A 57-year-old white female who had undergone cholecystectomy within couple of weeks in some outside facility. She got admitted here with acute onset of right upper quadrant pain associated with some redness in the right side of the abdomen. There was a concern for possible bile leak. HIDA is negative. Liver enzymes are abnormal. She is currently being treated with intravenous piperacillin/tazobactam for abdominal wall cellulitis. GI is being consulted for further evaluation of abnormal liver enzymes. PAST MEDICAL HISTORY: Coronary artery disease, hypertension, hyperlipidemia, peripheral neuropathy. PAST SURGICAL HISTORY: Recent cholecystectomy. SOCIAL HISTORY: No smoking, alcohol, or any illicit drug use. FAMILY HISTORY: Noncontributory. ALLERGIES: NO KNOWN DRUG ALLERGIES. OUTPATIENT MEDICATIONS: Atorvastatin, clopidogrel, folic acid, gabapentin, metoprolol, mometasone/formoterol, spironolactone, tramadol, and thiamine. INPATIENT MEDICATION LIST: Reviewed as per MAR, on intravenous piperacillin/tazobactam, famotidine, Zofran, tramadol, intravenous vancomycin, morphine, Zofran, and propranolol. PHYSICAL EXAMINATION VITAL SIGNS: Temperature 97.2, pulse 100, respirations 20, blood pressure 161/77, and oxygen saturation 91% on 2 L of nasal cannula. GENERAL: Appears to confused at this time. Oral mucosa is moist. Slightly icteric sclerae. CVS: S1 and S2 regular. LUNGS: Bilaterally grossly clear, although patient has a poor inspiratory effort. ABDOMEN: Obese. Palpable right upper quadrant tenderness with a diffuse skin erythema. No other mass or hernia. Positive bowel sounds. EXTREMITIES: Warm. No leg edema. LABS: WBC 22.87, hemoglobin 11.9, hematocrit 35.4, MCV 91.5, and platelet count 120,000. Sodium 123, potassium 3.5, chloride 89, bicarbonate 25, BUN 27, and creatinine 1.05. Liver enzymes yesterday done showed a total bilirubin 3.8. AST 744, ALT 192. Alkaline phosphatase 172. HIDA scan showed no bile leak. CT of the abdomen and pelvis with contrast showed cirrhotic liver, small-volume ascites, adrenal nodule, colonic diverticulosis, and late subacute or chronic splenic infarct. IMPRESSIONS 1. Abnormal liver enzymes post cholecystectomy. Bile leak has been ruled out. 2. Leukocytosis secondary to abdominal wall cellulitis. 3. Hyponatremia. PLAN 1. Continue present medical management. 2. MRCP tomorrow to rule out any retained common bile duct stone. 3. Continue to trend liver enzymes. 4. Rest of the care as per primary team. I thank Dr. Espinosa for allowing me to participate in the care of this patient. Job#: [id number] CF
[2018-04-24] MEDS: MORPHINE SULFATE INJ 4 MG/ML INJ 1ML IV PRN ×3 (01:15→21:17)
[2018-04-24] MEDS: ONDANSETRON HCL INJ 2MG/ML 2ML 2 MG/ML VIAL IV PRN ×2 (01:15→17:24)
--- NOTE | 2018-04-24 02:08 | Consultation ---
DATE OF CONSULTATION: April 23, 2018 CHIEF COMPLAINT: Abdominal pain. HISTORY OF PRESENT ILLNESS: The patient is a 57-year-old female with 1-week history of pain in the right upper quadrant. Patient originally presented with cholelithiasis and choledocholithiasis at [facility]. She underwent ERCP with removal of bile duct stone, followed by cholecystectomy. This was done approximately a week ago. Patient was sent home, but continued to have pain and vomiting. Not tolerant of any diet. She has been admitted with evidence of intraperitoneal ascites in the right upper quadrant. PAST MEDICAL HISTORY: Positive for hypertension, liver cirrhosis, ascites. SURGICAL HISTORY: Positive for hysterectomy and ERCP and recent cholecystectomy. ALLERGIES: SHE HAS NO DRUG ALLERGIES. SOCIAL HABITS: The patient was a heavy drinker for years and quit since March. REVIEW OF SYSTEMS: No chest pain or shortness of breath. PHYSICAL EXAMINATION: VITAL SIGNS: Stable. Mildly tachycardic at 105. She is afebrile. GENERAL: Patient is awake, alert, in moderate discomfort. HEENT: Sclerae are anicteric. NECK: Supple. LUNGS: Clear. HEART: Regular rate and rhythm. ABDOMEN: Moderately distended with guarding tenderness in the right upper quadrant. There is evidence of scant inflammations in the right flank area. EXTREMITIES: No cyanosis or edema. LABORATORY DATA: White cell count is 22,000; hemoglobin of 11; platelet count is 120,000. Creatinine is 1.0. Lactic acid is 13. Liver function tests, elevated bilirubin of 3.8, AST of 744, and alkaline phosphatase is 172. Abdominal CT showed localized ascites in the right upper quadrant with liver showing cirrhotic changes. Patient is status post cholecystectomy with clips in the right upper quadrant. Evidence of splenic infarcts. ASSESSMENT: Abdominal pain and intolerant of diet in patient who is post laparoscopic cholecystectomy and removal of bile duct stone. Computerized tomography finding is concerning for bile leak and hepatobiliary iminodiacetic acid scan has been performed, but no result available. PLAN: IV antibiotic coverage. Patient would benefit from gastroenterology consultation and possible ERCP with stenting of the bile duct should there be a bile leak seen on HIDA scan. Interventional radiology to tap the ascites fluid to rule out or confirm bile or bilious ascites. Thank you for consultation. Job#: [id number]
--- NOTE | 2018-04-24 02:43 | NUR ---
Patient request pain meds for pain to abd. Meds given as ordered by MD. Patient resting quitly at this time. Continue monitor.
[2018-04-24] MEDS: PIPER-TAZ 3.375 GM 50 ML IV SCH ×2 (04:30→20:13)
[2018-04-24 05:59] LABS: BASOPHILS # (AUTO) 0.1 (0.0-0.1); BASOPHILS % 0.5 % (0.0-1.0); EOSINOPHILS # (AUTO) 0.2 (0.0-0.4); EOSINOPHILS % 1.1 % (0.0-6.0); HEMATOCRIT 34.3 % (34.2-44.1); LYMPHOCYTES # (AUTO) 1.7 (1.0-3.2); MEAN CORPUSCULAR HEMOGLOBIN 31.4 pg (28-32); MEAN CORPUSCULAR VOLUME 89.8 fL (81-99); MONOCYTES # (AUTO) 2.1 (0.2-0.8); MONOCYTES % 9.8 % (4.4-11.3); NEUTROPHILS # (AUTO) 16.6 (2.1-6.9); PLATELET COUNT 84 x10e3/uL (140-360); RED BLOOD COUNT 3.82 x10e6/uL (3.6-5.1); RED CELL DISTRIBUTION WIDTH 14.7 % (11.7-14.4)
[2018-04-24 06:12] LABS: INR 1.7; PROTHROMBIN TIME 21.3 seconds (11.9-14.5)
[2018-04-24 06:25] LABS: ANION GAP 13.8 mmol/L (8-16); CALCIUM 8.1 mg/dL (8.4-10.2); CREATININE, SERUM 1.53 mg/dL (0.57-1.11); POTASSIUM 3.8 mmol/L (3.5-5.1)
--- NOTE | 2018-04-24 07:30 | NUR ---
PT UP IN RECLINER ASLEEP NO DISTRESS NOTED.
[2018-04-24] MEDS: FAMOTIDINE 20 MG/2 ML VIAL IV SCH (09:00)
[2018-04-24] MEDS: MOMETASONE INH SCH (09:00)
[2018-04-24] MEDS ORDERED: MOMETASONE INH SCH (09:00)
[2018-04-24] MEDS ORDERED: FORMOTEROL INH SCH (09:00)
[2018-04-24] MEDS ORDERED: VANCOMYCIN 1GM/NS 250 ML 250 ML IV SCH (09:00)
[2018-04-24] MEDS: FORMOTEROL INH SCH (09:00)
[2018-04-24] MEDS: PROPRANOLOL HCL 10 MG TAB PO SCH ×2 (09:00→17:00)
[2018-04-24] MEDS: LACTATED RINGER'S 1,000 ML IV SCH (09:30)
[2018-04-24 10:17] LABS: EOSINOPHILS % (MANUAL) 2 % (0-7); LYMPHOCYTES % (MANUAL) 7 % (19-48); MONOCYTES % (MANUAL) 5 % (3.4-9.0); MYELOCYTES % (MANUAL) 1 % (0-0); NEUTROPHILS % (MANUAL) 85 % (40-74)
[2018-04-24 10:18] LABS: ANISOCYTOSIS SLIGHT; HYPOCHROMASIA SLIGHT; PLATELET ESTIMATE SLIGHTLY DECREASED; PLATELET MORPHOLOGY COMMENT NORMAL; POIKILOCYTOSIS SLIGHT; RBC MORPHOLOGY COMMENT NORMAL
[2018-04-24] MEDS ORDERED: LACTATED RINGER'S 1,000 ML IV ONE (13:00)
[2018-04-24] MEDS: SODIUM CHLORIDE 0.9% 1000ML 1,000 ML IV SCH ×6 (15:30→21:40)
--- NOTE | 2018-04-24 15:45 | NUR ---
pt transported to mri via bed .
--- NOTE | 2018-04-24 16:00 | Diagnostic Imaging Report ---
Examination: Single AP view of the chest. COMPARISON: CT abdomen and pelvis 04/22/2018 INDICATION: Concern for pneumonia DISCUSSION: Lung volumes are low with vascular crowding in the bases, with associated subsegmental atelectasis. No airspace consolidation, pleural effusion, or pneumothorax. Atherosclerotic calcification of the thoracic aorta. Otherwise normal cardiomediastinal contour for portable, AP technique. No pulmonary edema. No acute osseous abnormality. IMPRESSION: Low lung volumes without acute cardiopulmonary abnormality. No consolidative pneumonia per clinical query. Signed by: Dr. Francisco Javier Turk M.D. on 04/24/2018 3:56 PM
--- NOTE | 2018-04-24 16:25 | NUR ---
mri called stated pt refuses test .paged dr green.
--- NOTE | 2018-04-24 16:35 | NUR ---
pt still refuses to have test ,ativan seems to make pt more confused,refused to have more medication family at bedside and also requested not to give anymore medication
--- NOTE | 2018-04-24 16:45 | NUR ---
spoke with dr green orders written
[2018-04-24] MEDS ORDERED: LORAZEPAM INJ 2 MG/ML VIAL ONE (16:54)
--- NOTE | 2018-04-24 16:55 | NUR ---
ativan 0.5 given as ordered.
[2018-04-24] MEDS ORDERED: LORAZEPAM INJ 2 MG/ML VIAL IV ONE (17:00)
--- NOTE | 2018-04-24 17:00 | NUR ---
spoke with dr gomez informed pt refused mri no new orders
--- NOTE | 2018-04-24 18:00 | NUR ---
pt continuing to try to get out of bed,very agitated.paged dr green
--- NOTE | 2018-04-24 18:17 | NUR ---
Nutrition Screen Note RD Recommendation for Physician: -Rec advancing to low fat/ low sodium diet as medically appropriate Plan of Care: RD following, monitoring for tolerance and adequacy Nutrition reason for involvement: Diagnosis Primary Diagnose(s): 1. Abnormal liver enzymes post cholecystectomy. Bile leak has been ruled out. 2. Leukocytosis secondary to abdominal wall cellulitis. 3. Hyponatremia. PMH: Coronary artery disease, hypertension, hyperlipidemia, peripheral neuropathy. Ht: 62in Wt: 189lb BMI: 34.6kg/m2 IBW: 110lb RD Assessment: (04/24) Chart reviewed. Labs and meds reviewed. 57yo F, who is admitted for acute onset of persistent right upper quadrant pain post cholecystectomy. She underwent ERCP with removal of bile duct stone, followed by cholecystectomy about a week ago. Since then, pt hasnt been able to tolerate any liquids or solids. Visited pt in the room. Per sister, pt is not able to hold any food down since surgery. CT abd/ pel showed cirrhosis with small volume of ascites. Negative HIDA scan. GI has been consulted. Possible ERCP to see if there is a bile leak. Unable to determine weight loss due to ascites. Per sister, pts UBW ~191lbs. Pt still has vomiting episode since admission. Currently, pt is NPO for further workup. Will continue to monitor and follow. Current Diet: NPO Malnutrition Evaluation (04/24/2018) The patient does not meet criteria for a specified degree of malnutrition at this time. Will re-evaluate at follow-up as appropriate. Energy intake: <75% of estimated energy requirements for >7 days Weight loss: Unknown Fat loss: None Muscle loss: None Supporting Evidence: Fluid accumulation: Mild- ascites Functional Status: no changes Diet Education Needs Assessment: Diet education indicated, pt is not appropriate at this time. Nutrition Care Level: low Signed: Mary Cotter, MS, RD, LD
[2018-04-24 18:45] LABS: CREATININE,URINE RANDOM 73.06 mg/dL (47-110)
[2018-04-24 18:47] LABS: SODIUM,URINE < 20 mmol/L
[2018-04-24] MEDS ORDERED: WATER STERILE 10 ML VIAL INJ PRN (19:00)
[2018-04-24] MEDS ORDERED: ZIPRASIDONE 20 MG VIAL IM ONE (19:00)
--- NOTE | 2018-04-24 19:04 | NUR ---
geodon given as ordered
--- NOTE | 2018-04-24 19:23 | NUR ---
Received change of shift report from AM nurse. Walking rounds completed.
[2018-04-24] MEDS ORDERED: PROMETHAZINE 25MG/ NS 50ML (IV) IV ONE (21:00)
--- NOTE | 2018-04-24 21:14 | Consultation ---
DATE OF CONSULTATION: April 24, 2018 HISTORY: Predominantly from daughter, patient very drowsy, lethargic, barely opens eyes, does not follow commands, unable to get review of systems. Patient has existing history of alcoholic cirrhosis with possible portal hypertension, recently had laparoscopic cholecystectomy done at [facility], subsequently discharged. Patient kept on having nausea and vomiting, was not able to keep any food down, developed fever, went to an outlying ER, subsequently rerouted here to get admitted. Yesterday serum sodium was 123, today 128; potassium 3.8; bicarbonate 25 and creatinine was 1.05 yesterday, is 1.53 today. Calcium is 8.1. Total bili is elevated at 3.2. AST and ALT elevated. Alkaline phosphatase 185. Ammonia is 62. Albumin is low at 2. ALLERGIES: PATIENT HAS NO DRUG ALLERGIES. SOCIAL HISTORY: Patient quit drinking as of March. CURRENT MEDICATIONS: Include she is on an inhaler called mometasone. She is on propranolol 20 mg p.o. b.i.d., tramadol p.r.n. for pain. She is on ondansetron p.r.n. She is on lorazepam p.r.n. doses, famotidine 20 mg IV daily. Received 1 g vancomycin IV daily. Received a liter of normal saline bolus, currently on normal saline 150 mL an hour. She is on pip-tazo at 3.375 g IV q.12. She also received a ringer's Lactate injection as a bolus. PAST HISTORY: Underlying history of coronary artery disease, hypertension, hyperlipidemia, peripheral neuropathy, recent cholecystectomy. PHYSICAL EXAMINATION: GENERAL: Quite lethargic, stuporous, lying supine. VITAL SIGNS: Blood pressure 143/89, pulse rate 80, afebrile, oxygen saturation 94% on room air. HEENT: Head and neck: Cornea clear. Oral mucosa dry. Limited exam. Neck veins flat. Numerous spider angiomata noted over the chest wall. LUNGS: Harsh vesicular breath sounds. Air entry equal bilaterally. Poor gas exchange. No rales. HEART: S1 and S2 audible. ABDOMEN: Otherwise soft, nontender. There is evidence of some right-sided flank edema with redness around the percutaneous laparoscopic cholecystectomy site, mostly involving the right flank, is nontender. No deep palpation done. Patient recently had a HIDA scan, there was no evidence of any bile leak. Had a CT abdomen and pelvis done, which was done with contrast, shows cirrhosis with probable cavernous transformation, small-volume ascites, bilateral indeterminate adrenal nodules, , colonic diverticula, no mention of any abscess. IMPRESSION AND PLAN: 1. Acute kidney injury, status post intravenous contrast. I doubt this is hepatorenal although it is a possibility, but I think this is contrast-induced nephropathy. Will continue with intravenous fluids. Resuscitate volume. 2. Hyponatremia, multifactorial, secondary to decreased solute intake as well as underlying cirrhosis. No significant acid-base disturbance. Discussed with bedside registered nurse as well as discussed with patient's daughter whom patient lives with. Will obtain uric acid level as well. Will monitor patient's kidney function and urine output with you. I will discontinue vancomycin. No cultures drawn, so I will send urine and blood cultures. Please see orders. Job#: [id number]
--- NOTE | 2018-04-24 23:14 | Progress Note ---
DATE: April 24, 2018 SUBJECTIVE: The patient refused for MRI today. REVIEW OF SYSTEMS: Unobtainable, patient is sedated. MEDICATIONS: Reviewed MAR. She is getting intravenous piperacillin/tazobactam along with other medications. PHYSICAL EXAMINATION VITAL SIGNS: Temperature 96.7, pulse 79, respiration 18, blood pressure 114/80, oxygen saturations 97% on room air. GENERAL: Sedated. HEENT: Mouth breather. Slightly icteric sclerae. ABDOMEN: Obese. Mild gaseous distention. Right upper quadrant diffuse erythema palpable. No palpable right upper quadrant tenderness. Bowel sounds present. LABS: WBC has come down to 21.23, hemoglobin 12 from 11.9, hematocrit 34.3, platelet count 84, down from 120. Sodium 128, potassium 3.8, chloride 93, bicarbonate 25, BUN 33, creatinine 1.53. Liver enzymes showed a total bilirubin down to 3.1 from 3.2, AST 501 from 589, ALT 154 from 156, alkaline phosphatase 185 from 163. IMPRESSION: Abnormal liver enzymes with right upper quadrant cellulitis in a patient with laparoscopic cholecystectomy done within 1 week. PLAN: Continue to trend liver enzymes. Continue antibiotic for right upper quadrant cellulitis. Follow up viral hepatitis serology. Will continue to monitor her clinically. Job#: [id number]
--- NOTE | 2018-04-25 | NUR ---
Patient very agitated. Family at bedside. Called Dr Adam received orders. Meds given to calm patient and tx pain. Meds given. Patient very lethargic. Meds given.
[2018-04-25 04:00] VITALS: BP 148/93
[2018-04-25] MEDS: SODIUM CHLORIDE 0.9% 1000ML 1,000 ML IV SCH ×3 (04:20→20:11)
[2018-04-25] MEDS: MORPHINE SULFATE INJ 4 MG/ML INJ 1ML IV PRN ×5 (04:35→20:03)
--- NOTE | 2018-04-25 05:31 | NUR ---
Continue monitor. Patient received pain med per family request. Patient resting quitly at this time.
[2018-04-25 05:43] LABS: BASOPHILS # (AUTO) 0.1 (0.0-0.1); BASOPHILS % 0.6 % (0.0-1.0); EOSINOPHILS # (AUTO) 0.1 (0.0-0.4); EOSINOPHILS % 0.4 % (0.0-6.0); HEMATOCRIT 37.2 % (34.2-44.1); HEMOGLOBIN 12.7 g/dL (12.0-16.0); LYMPHOCYTES # (AUTO) 1.4 (1.0-3.2); LYMPHOCYTES % 7.6 % (18.0-39.1); MEAN CORPUSCULAR HEMOGLOBIN 31.1 pg (28-32); MEAN CORPUSCULAR HGB CONC 34.1 g/dL (31-35); MONOCYTES # (AUTO) 1.6 (0.2-0.8); MONOCYTES % 8.5 % (4.4-11.3); NEUTROPHILS % 80.5 % (38.7-80.0); PLATELET COUNT 84 x10e3/uL (140-360); RED BLOOD COUNT 4.09 x10e6/uL (3.6-5.1); RED CELL DISTRIBUTION WIDTH 15.8 % (11.7-14.4)
[2018-04-25 06:05] LABS: INR 1.7; PROTHROMBIN TIME 21.3 seconds (11.9-14.5)
[2018-04-25 06:06] LABS: PARTIAL THROMBOPLASTIN TIME 39.8 seconds (23.8-35.5)
[2018-04-25 06:12] LABS: ALBUMIN/GLOBULIN RATIO 0.6 (0.8-2.0); CALCIUM 8.2 mg/dL (8.4-10.2); CREATININE, SERUM 1.38 mg/dL (0.57-1.11)
[2018-04-25 06:54] LABS: EOSINOPHILS % (MANUAL) 1 % (0-7); LYMPHOCYTES % (MANUAL) 5 % (19-48); MONOCYTES % (MANUAL) 5 % (3.4-9.0); NEUTROPHILS % (MANUAL) 89 % (40-74)
[2018-04-25 06:56] LABS: PLATELET ESTIMATE SLIGHTLY DECREASED; PLATELET MORPHOLOGY COMMENT NORMAL; RBC MORPHOLOGY COMMENT NORMAL
[2018-04-25 06:57] LABS: ANISOCYTOSIS SLIGHT; HYPOCHROMASIA SLIGHT
--- NOTE | 2018-04-25 07:02 | NUR ---
RECEIVED PATIENT RESTING IN BED. NO ACUTE DISTRESS NOTED. SISTER AT BEDSIDE. CALL LIGHT WITHIN REACH. BED IN THE LOWEST POSITION. BED ALARM ON.
[2018-04-25 07:20] VITALS: BP 153/78
[2018-04-25 07:23] LABS: BILIRUBIN,DIRECT 2.1 mg/dL (0.0-0.5); MAGNESIUM 1.6 MG/DL (1.3-2.1)
--- NOTE | 2018-04-25 08:32 | Diagnostic Imaging Report ---
EXAM: Renal Ultrasound INDICATION: Renal failure. COMPARISON: None TECHNIQUE: Transverse and longitudinal images of the kidneys and bladder were obtained. FINDINGS: Somewhat limited study secondary to patient inability to hold breath. Right Kidney: Length: Measures 8.2 x 4.4 x 4.9 cm Appearance: Normal echogenicity. Collecting system: No hydronephrosis Stones: None Cyst/Mass: None Left Kidney: Length: Measures 9.7 x 5.4 x 4.5 cm Appearance: Normal echogenicity. Collecting system: No hydronephrosis Stones: None Cyst/Mass: None Small amount of fluid is noted in the right upper quadrant. Bladder: Unremarkable appearance. Bilateral ureteral jets are not seen. IMPRESSION: No sonographic evidence of stone or hydronephrosis. Small volume ascites in the right upper quadrant. Signed by: Dr. Sana Minor MD on 04/25/2018 8:29 AM
[2018-04-25] MEDS: FORMOTEROL INH SCH (08:42)
[2018-04-25] MEDS: MOMETASONE INH SCH (08:42)
[2018-04-25] MEDS: PROPRANOLOL HCL 10 MG TAB PO SCH (08:50)
--- NOTE | 2018-04-25 08:52 | NUR ---
DR. CUI NOTIFIED OF VANC TROUGH LEVEL.
[2018-04-25] MEDS: PIPER-TAZ 3.375 GM 50 ML IV SCH (08:57)
[2018-04-25] MEDS: FAMOTIDINE 20 MG/2 ML VIAL IV SCH (08:57)
--- NOTE | 2018-04-25 09:17 | Discharge Summary ---
No dictation 00:01 seconds. KEENAN REYNA MD Job#: [id number]
[2018-04-25 11:21] VITALS: BP 106/71
[2018-04-25] MEDS ORDERED: PIPERACILLIN/TAZO 2.25 GM 50 ML IV SCH (12:00)
--- NOTE | 2018-04-25 12:07 | Consultation ---
DATE OF CONSULTATION: April 25, 2018 ATTENDING PHYSICIAN: Dr. Espinosa REASON FOR CONSULTATION: Leukocytosis. Thank you, Dr. Espinosa, for asking me to see this patient. HISTORY: The patient is a 57-year-old woman referred for leukocytosis. She is unable to give history because she is sedated. Therefore, information was obtained from the sisters and supplemented by chart review. The patient presented to the emergency department with vomiting, decreased oral intake, as well as right upper quadrant and right flank redness and pain. She did not have fever or diarrhea. The patient was discharged from [facility] 3 days earlier following laparoscopic cholecystectomy on 04/16/2018. In the emergency department, she was noted to have temperature of 98.5 degrees Fahrenheit, pulse rate 78, respiratory rate 16, blood pressure 132/81 and oxygen saturation 98% on room air. Initial laboratory studies showed blood leukocyte count of 23,280 with 81.1% neutrophils; BUN 28; creatinine 1.1; AST 744; ALT 192; alkaline phosphatase 172; total bilirubin 3.8. CT scan of the abdomen and pelvis showed soft-tissue edema and small volume ascites. HIDA scan was negative. Patient has had elevated blood leukocyte count since admission (range 18,660 to 23,380). She has become lethargic since yesterday after receiving Ativan. Also, she was receiving morphine. She has been evaluated by the gastroenterology service. PAST MEDICAL HISTORY: Hypertension, hyperlipidemia, chronic hepatitis C infection, alcohol abuse, cirrhosis of the liver, prior intravenous drug abuse and peripheral neuropathy. PAST SURGICAL HISTORY: Recent cholecystectomy and hysterectomy. ALLERGIES: NO KNOWN DRUG ALLERGIES. MEDICATIONS: The current antibiotic is Zosyn 3.375 grams IV piggyback q.12 h. She received vancomycin until yesterday when it was discontinued because of high trough. Also, the patient's family claimed that she received multiple medications at recent prior hospitalization including gabapentin. IMMUNIZATIONS: She received influenza and pneumococcal vaccinations in March 2018. FAMILY HISTORY: Noncontributory. SOCIAL HISTORY: She drank alcohol until she became too sick to drink in March 2018. She quit smoking cigarettes 6 months ago. Also, she quit intravenous methamphetamine and heroin about 3 years ago. REVIEW OF SYSTEMS: Unable to obtain. PHYSICAL EXAMINATION VITALS: T-max 96.8, pulse rate 92, respiratory rate 18, blood pressure 153/78, weight 210 pounds. GENERAL: Lethargic and unable to interact. HEENT: Atraumatic. There is icterus with suffusion of the conjunctivae. There is no ear or nasal discharge. Uncooperative with oral and pharyngeal examination. NECK: Supple. No meningismus. LUNGS: Good air entry bilaterally. HEART: Normal S1 and S2. ABDOMEN: Distended with abdominal wall edema and mild diffuse tenderness. No rebound tenderness. There are 3 sites of laparoscopic insertion. There are mild redness and edema of the right abdominal wall. SKIN: There are old scars of the upper limb sites of removed tattoos. Right abdominal wall redness as described above. 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 LABORATORY AND DIAGNOSTICS: WBC 18,660, down from 21,230 yesterday; hemoglobin 12.7; platelets 84. Neutrophils 80.5, lymphocytes 7.6, monocytes 8.5, eosinophils 0.4 and basophils 0.6. BUN 31, creatinine 1.38. AST 365, ALT 130, alkaline phosphatase 174, and total bilirubin 3.1. Serum ammonia 62. Renal ultrasound showed small volume ascites in the right upper quadrant but no sonographic evidence of stone or hydronephrosis. IMPRESSION 1. Leukocytosis. 2. Abdominal wall cellulitis. 3. Cirrhosis of liver. 4. Chronic hepatitis C infection. 5. Abnormal liver enzymes. 6. Acute kidney injury. PLAN 1. Await culture results. 2. If possible, aspiration of the small right upper quadrant ascites should be performed for cell count, protein, Gram stain, culture and sensitivity. 3. Change Zosyn to 2.25 grams IV piggyback q.6 h. Redose vancomycin when the serum level falls below 15. Administer lactulose when the patient is able to tolerate p.o. Otherwise, NG tube should be placed for administration of lactulose. Job#: [id number]
--- NOTE | 2018-04-25 12:17 | NUR ---
PAGED DR. MCBRIDE IN REGARDS TO FLUID ORDER. NO ANSWER, LVM.
[2018-04-25] MEDS: PIPERACILLIN/TAZO 2.25 GM 50 ML IV SCH ×2 (14:52→20:02)
--- NOTE | 2018-04-25 15:16 | Progress Note ---
DATE: April 25, 2018 GASTROENTEROLOGY PROGRESS NOTE SUBJECTIVE: Patient continues to be somnolent and is still sleeping. Patient's sister is at the bedside. No new events. REVIEW OF SYSTEMS: Unobtainable. MEDICATIONS: Reviewed as per MAY. She is on: 1. Morphine 1 mg q.2 h. as needed. 2. Famotidine 20 mg IV daily. 3. Zofran 4 mg IV q.4 h. as needed. 4. Normal saline. 5. Propranolol 20 mg twice daily. 6. Zosyn 3.375 mg IV q.6 h. 7. Tramadol 25 mg daily. PHYSICAL EXAMINATION VITAL SIGNS: Temperature 95.9, pulse 96, respirations 20, blood pressure 106/71, oxygen saturation 96% on room air. GENERAL: Somnolent and obtunded. Oral mucosa is moist. Slightly icteric sclerae. ABDOMEN: Mild gaseous distention. Right upper quadrant cellulitis resolving. No digitally appreciable shifting tenderness. No mass or hernia. Positive bowel sounds. LABS: WBC has come down to 18.66 from 21.23, hemoglobin 12.7, hematocrit 37.2, and platelet count 84,000. Sodium 133, potassium 4, chloride 99, bicarbonate 25, BUN 31, creatinine 1.38, down from 1.53. Liver enzymes showed total bilirubin 3.1 from 3.1. AST down to 365 from 501. ALT down to 130 from 154. Alkaline phosphatase 174 from 185. IMPRESSION 1. Paradoxical reaction from Ativan given yesterday: She may also be having underlying hepatic encephalopathy. Patient has alcoholic liver cirrhosis. 2. Abnormal liver enzymes: This cannot be due to any obstruction in the common bile duct. I do not suspect any stone now. HIDA scan showed radiopharmaceutical reaching into the small bowel. This ensures patency of the common bile duct. 3. Right upper quadrant cellulitis. PLAN: Continue to monitor liver enzymes. I do not think the elevated liver enzymes is due to common bile duct obstruction. This is due to underlying alcoholic liver cirrhosis. She may be having some component of hepatic encephalopathy. Therefore, she should be given lactulose, either enema or by mouth when she is mentally more alert, or to consider NG to deliver lactulose. Discontinue propranolol. This has more side effect on central nervous system. This is not very helpful for any underlying portal hypertension at this time. I had a detailed discussion with the patient's sister at bedside. She agreed to treat conservatively and monitor her clinically. Discussed with Dr. Espinosa. Job#: [id number]
[2018-04-25 15:19] VITALS: BP 148/79
[2018-04-25] MEDS: LACTULOSE SYRUP 20 GM/30 ML UDC RC SCH ×2 (16:43→23:00)
[2018-04-25] MEDS ORDERED: WATER STERILE FOR IRRIG 1000 ML PLCT ONE (17:00)
--- NOTE | 2018-04-25 19:01 | NUR ---
REPORT GIVEN TO ONCOMING NURSE, PATIENT IS IN STABLE CONDITION. NO ACUTE DISTRESS NOTED. FAMILY AT BEDSIDE. CALL LIGHT WITHIN REACH. BED IN THE LOWEST POSITION. BED ALARM ON.
[2018-04-25 19:25] VITALS: BP 136/80
--- NOTE | 2018-04-25 19:30 | NUR ---
Received change of shift report from AM nurse. Walking rounds completed.
[2018-04-25] MEDS: ONDANSETRON HCL INJ 2MG/ML 2ML 2 MG/ML VIAL IV PRN (20:03)
[2018-04-25 23:45] VITALS: BP 143/67
--- NOTE | 2018-04-25 23:55 | NUR ---
Patient received a enema as ordered by MD. Patient tolerated well. Given a bed bath. Pt did well. Repositioned in bed to right side. Family asleep at bedside.
[2018-04-26] MEDS: MORPHINE SULFATE INJ 4 MG/ML INJ 1ML IV PRN ×7 (02:59→22:18)
[2018-04-26] MEDS: ONDANSETRON HCL INJ 2MG/ML 2ML 2 MG/ML VIAL IV PRN (03:00)
[2018-04-26] MEDS: PIPERACILLIN/TAZO 2.25 GM 50 ML IV SCH ×2 (03:00→09:00)
[2018-04-26 04:00] VITALS: BP 121/58
[2018-04-26] MEDS: SODIUM CHLORIDE 0.9% 1000ML 1,000 ML IV SCH (05:29)
[2018-04-26 06:16] LABS: BASOPHILS # (AUTO) 0.1 (0.0-0.1); BASOPHILS % 0.4 % (0.0-1.0); EOSINOPHILS % 0.1 % (0.0-6.0); HEMOGLOBIN 11.9 g/dL (12.0-16.0); LYMPHOCYTES # (AUTO) 1.3 (1.0-3.2); LYMPHOCYTES % 6.6 % (18.0-39.1); MEAN CORPUSCULAR HEMOGLOBIN 31.1 pg (28-32); MEAN CORPUSCULAR HGB CONC 33.1 g/dL (31-35); MONOCYTES # (AUTO) 1.3 (0.2-0.8); MONOCYTES % 6.9 % (4.4-11.3); NEUTROPHILS # (AUTO) 15.8 (2.1-6.9); NEUTROPHILS % 82.7 % (38.7-80.0); PLATELET COUNT 98 x10e3/uL (140-360); RED BLOOD COUNT 3.83 x10e6/uL (3.6-5.1); RED CELL DISTRIBUTION WIDTH 16.9 % (11.7-14.4)
--- NOTE | 2018-04-26 06:23 | NUR ---
Patient received pain meds for pain. Pt resting quitly at the time. Continue monitor.
[2018-04-26 06:25] LABS: INR 3.19; PARTIAL THROMBOPLASTIN TIME 50.9 seconds (23.8-35.5); PROTHROMBIN TIME 34.9 seconds (11.9-14.5)
[2018-04-26 06:39] LABS: ALBUMIN 1.9 g/dL (3.5-5.0); ANION GAP 21.9 mmol/L (8-16); BILIRUBIN,DIRECT 2.8 mg/dL (0.0-0.5); CREATININE, SERUM 1.71 mg/dL (0.57-1.11); POTASSIUM 4.9 mmol/L (3.5-5.1)
[2018-04-26] MEDS ORDERED: DEXTROSE 50% SYRINGE 50 ML IV ONE (06:45)
--- NOTE | 2018-04-26 07:02 | NUR ---
RECEIVED PATIENT RESTING IN BED WITH EYES CLOSED. RESPIRATIONS EVEN AND UNLABORED, NO ACUTE DISTRESS NOTED. SISTERS AT BEDSIDE. CALL LIGHT WITHIN REACH. BED IN THE LOWEST POSITION. BED ALARM ON.
[2018-04-26 07:15] VITALS: BP 104/86
[2018-04-26] MEDS ORDERED: DEXTROSE 5%/0.9% SOD CHL 1,000 ML IV SCH (07:15)
[2018-04-26 07:53] VITALS: BP 104/86
--- NOTE | 2018-04-26 07:56 | NUR ---
RE-ASSESSED PATIENT'S BG AFTER SHE RECEIVED D50 BY NIGHT NURSE. IT IS 99 NOW.
[2018-04-26] MEDS: MOMETASONE INH SCH (09:00)
[2018-04-26] MEDS: FORMOTEROL INH SCH (09:00)
[2018-04-26] MEDS: LACTULOSE SYRUP 20 GM/30 ML UDC RC SCH (09:00)
[2018-04-26] MEDS: FAMOTIDINE 20 MG/2 ML VIAL IV SCH (09:06)
--- NOTE | 2018-04-26 09:07 | NUR ---
PATIENT FAMILY REFUSING MEDICATIONS EXCEPT FOR PEPCID AND MORPHINE PRN. THEY WILL TALK TO DR. BENNETT ABOUT HOSPICE CARE FOR PATIENT.
[2018-04-26 11:40] VITALS: BP 110/77
--- NOTE | 2018-04-26 13:29 | NUR ---
Met with pt daughters Shelbie [phone], [place] [phone]. They want [facility] and signed choice letter. ALDA called [facility] [phone]. and there was no answer. ALDA then called [facility] answering service [phone] and notified them of referral. ALDA informed nurse of plan. Dr. Espinosa met with ALDA and stated pt is poor prognosis, and the IVF are being stopped. Stated pt is already hypoglycemic, and may not make it home for hospice, but to contact hospice to get process started.
--- NOTE | 2018-04-26 13:33 | NUR ---
PATIENT HAD A SMALL LIQUID/BLOODY BM. DR. BENNETT NOTIFIED.
--- NOTE | 2018-04-26 13:43 | NUR ---
[facility] [phone] liaison with [facility] returned call. She has spoken with pt daughter, Shelbie. She will send plastics patternmaker to hospital for eval and to start process.
--- NOTE | 2018-04-26 15:52 | NUR ---
PATIENT'S ROBE SORENSEN REQUESTED MORPHINE FOR PATIENT'S COMFORT CARE. SHE IS AWARE OF PATIENT'S BP.
[2018-04-26 16:05] VITALS: BP 77/55
--- NOTE | 2018-04-26 16:11 | NUR ---
NITIN WITH [facility] CALLED TO ASK WHEN THE DC DATE WAS FOR PATIENT. CALLED DR. BENNETT AND HE STATED TOMORROW IF EVERYTHING IS GOOD. NOTIFIED [facility].
--- NOTE | 2018-04-26 17:14 | NUR ---
NURSE WENT IN TO SEE IF SHE COULD REPOSITION PATIENT, PER FAMILY SHE IS GOOD RIGHT NOW. NO REPOSITION.
--- NOTE | 2018-04-26 18:01 | NUR ---
PATIENT'S FAMILY NOTIFIED NURSE THAT THEY WANT TO DO THE Q2H TURNS FOR PATIENT.
--- NOTE | 2018-04-26 19:26 | NUR ---
REPORT GIVEN TO ONCOMING NURSE. PATIENT IS RESTING IN BED, RESPIRATIONS EVEN AND UNLABORED, NO SOB NOTED. FAMILY AT BESIDE. CALL LIGHT WITHIN REACH. BED IN THE LOWEST POSITION. BED ALARM ON.
--- NOTE | 2018-04-27 00:20 | NUR ---
PT SISTER STATED "SHE'S BARELY BREATHING" PT SISTER REFUSED PT TO BE REPOSITIONED, ALSO REFUSED TO GET BP AND O2 SAT CHECKED. UNABLE TO OBTAIN O2 SAT AND BP.
--- NOTE | 2018-04-27 01:20 | NUR ---
PATIENT SISTER CAME TO NURSES STATION AND INFORMED NURSE THAT SHE THINKS THE PATIENT ALREADY . THIS NURSE AND JORDY RN WENT TO PT ROOM, BREATHING AND PULSE ARE ABSENT. NOTIFIED CHARGE NURSE AND PRIMER WATERPROOFING MACHINE OPERATOR AT 0055. ER PHYSICIAN NOTIFIED AT 0057. ADMITTING PHYSICIAN DR. BENNETT NOTIFIED AT 0107. [facility] NOTIFIED AT 0111.
--- NOTE | 2018-04-27 02:08 | NUR ---
ASSESSMENT: Spiritual distress Pt's family grieving. Pt's family at bedside. Pt's family quietly reflecting on pt's life. Intervention: Provided empathic listening and calming presence. Provided prayer. Discussed arrangements with family. Verified address of NOK (sister) in order to mail condolence letter and brochure on grief. Followed up w/ RN. Outcome: Pt's family expressed appreciation for support. [facility] [employer] [facility] Department O: [phone] Pager: [phone] ([phone] number calling from)
--- NOTE | 2018-04-27 03:30 | NUR ---
PT CLEANED. FITZPATRICK CATHETER DC'D. IV REMOVED WITH TIP INTACT. PRESSURE DRESSING APPLIED.
--- NOTE | 2018-04-27 04:12 | NUR ---
PT OFF UNIT TO [facility]
--- NOTE | 2018-05-02 18:19 | Discharge Summary ---
PRIMARY CARE DOCTOR: Dr. Oleksandr Lara with [facility]. FINAL DIAGNOSIS: Sepsis, present on admission, possibly due to cellulitis. SECONDARY DIAGNOSES 1. Fulminant hepatic failure. 2. Acute renal failure. 3. Hyponatremia. CONSULTANTS 1. Dr. Guan, nephrology. 2. Dr. Sharma, surgery. 3. Dr. Xiao, GI. 4. Dr. Lozano, infectious disease. PROCEDURES/STUDIES PERFORMED: HIDA scan, which did not show any leak. HISTORY: Per [facility] HOSPITAL COURSE: Patient was admitted. Patient was placed on vancomycin and Zosyn; however, despite that her WBC never really came down fast. Unfortunately, HIDA scan was negative for any bile leak. Also per GI, it is not consistent with cholangitis. Despite our best efforts, patient continued to deteriorate. Finally after discussing with the sisters, they made her comfort care only. Subsequently, patient on April 27, 2018. Job#: [id number] RTY cc:OLEKSANDR LARA MD
== END 2018-04-27 04:12 | disposition expired | DRG 871 ==
LOC: ER 13:42 → ERHOLD 19:47 → MED/SURG3 04-23 13:04
PROVIDERS: ADMIT Internal Medicine; ATTEND Internal Medicine
DX: A41.9 Sepsis, unspecified organism (principal); N17.0 Acute kidney failure with tubular necrosis; G93.41 Metabolic encephalopathy; L03.311 Cellulitis of abdominal wall; E87.1 Hypo-osmolality and hyponatremia; N17.9 Acute kidney failure, unspecified; N13.30 Unspecified hydronephrosis; K70.31 Alcoholic cirrhosis of liver with ascites; D69.6 Thrombocytopenia, unspecified; Z66 Do not resuscitate; E16.2 Hypoglycemia, unspecified; K52.9 Noninfective gastroenteritis and colitis, unspecified; I10 Essential (primary) hypertension; I48.91 Unspecified atrial fibrillation; Z82.49 Family history of ischemic heart disease and other diseases of the circulatory system; Z90.49 Acquired absence of other specified parts of digestive tract; B18.2 Chronic viral hepatitis C; K72.90 Hepatic failure, unspecified without coma; T42.4X5A Adverse effect of benzodiazepines, initial encounter; Y92.230 Patient room in hospital as the place of occurrence of the external cause
CPT/HCPCS: 36415; 71045; 74177; 76770; 78226; 80048; 80053; 80076; 80202; 81001; 82140; 82248; 82550; 82553; 82570; 82948; 83605; 83690; 83735; 84300; 84443; 84484; 84550; 85025; 85610; 85730; 87040; 87086; 99284; A9537; J2060; J2270; J2405; J2543; J2550; J2805; J3370; J3486; J7030; J7042; J7121; J7799; Q9967